=== PATIENT | female | born 1935 | race Caucasian/White ===

== ENCOUNTER 2016-08-30 08:07 | Day surgery (SDC) | payer MEDICARE, BC ==
[2016-08-30] MEDS ORDERED: Dextrose 5%-Lactated Ringers 1,000 ML IV SCH (09:00)
[2016-08-30] MEDS ORDERED: Propofol 200 MG/20 ML SDV ONE ×2 (09:18→09:19)
[2016-08-30] MEDS ORDERED: fentaNYL 100 MCG/2 ML SDV ONE (09:19)
[2016-08-30 12:57] VITALS: BP 96/50
--- NOTE | 2016-09-06 19:09 | OR ---
DATE OF PROCEDURE: 08/30/2016 PREOPERATIVE DIAGNOSIS: Recent onset of diarrhea. POSTOPERATIVE DIAGNOSES: 1. Recent onset of diarrhea. 2. Uncomplicated left colonic diverticulosis. OPERATIVE PROCEDURE: Flexible colonoscopy with: 1. Random colorectal biopsies to rule out microscopic colitis. 2. Collection of stool for culture and sensitivity. ANESTHESIA: IV sedation. INDICATION FOR PROCEDURE: A 80-year-old female with previously longstanding problems with aspiration of developing an ongoing diarrhea or frequent loose bowel movements and she had been reporting a bout of bleeding. The plan is to proceed with a flexible colonoscopy with biopsies and polypectomy as indicated. Potential risks including bleeding and perforation were discussed, and the patient wishes to proceed. DETAILS OF PROCEDURE: The patient was taken to the operating room and placed in a left lateral decubitus position. IV sedation was administered, after which the initial digital rectal exam was performed and was unremarkable. Colonoscope was then passed into the level of the rectum with retroflexion revealing uncomplicated hemorrhoidal columns. The scope was then eventually passed to the level of the cecum. The prep was fairly good with there only being a small liquid stool present. The stool was aspirated and sent for a full radial microbiologic workup. Apart from some uncomplicated left colonic diverticulosis, there were otherwise no mucosal abnormalities noted and there were no areas of colitis and no polyps or other signs of neoplasia. On the way back and from the cecum, multiple colorectal biopsies were obtained randomly to rule out microscopic colitis. No bleeding from the biopsy sites was seen, and the procedure was then concluded. The patient was taken to the recovery room in satisfactory condition. PLAN: At this point, we will add some FiberCon to the patient's regimen. The patient to be taking FiberCon tablet b.i.d. and she will be set up to see Olga Yao in [facility] in 7 to 10 days. Nicolas Reddy MD /[id number]
== END 2016-08-30 12:20 | disposition home or self-care (01) ==
LOC: JP.SDS 08:07
PROVIDERS: ATTEND Surgery
DX: K52.9 Noninfective gastroenteritis and colitis, unspecified (principal); K57.30 Diverticulosis of large intestine without perforation or abscess without bleeding; I10 Essential (primary) hypertension; E78.5 Hyperlipidemia, unspecified; K21.9 Gastro-esophageal reflux disease without esophagitis; E11.9 Type 2 diabetes mellitus without complications; Z88.1 Allergy status to other antibiotic agents; Z88.2 Allergy status to sulfonamides; Z88.8 Allergy status to other drugs, medicaments and biological substances
CPT/HCPCS: 45380; 87046; 87177; 87209; 87493; 87899; 88305; 89055; J2704; J3010; J7042

== ENCOUNTER 2020-08-22 11:03 | Emergency (ER) | payer MEDICARE ==
--- NOTE | 2020-08-22 11:49 | EDM.PDOC ---
ED HPI GENERAL MEDICAL PROBLEM - General Chief Complaint: Respiratory Problem Stated Complaint: DIFF. BREATHING/URINE ISSUES Time Seen by Provider: 08/22/20 11:30 Source of Information: Reports: Patient, Family History Limitations: Reports: No Limitations - History of Present Illness INITIAL COMMENTS - FREE TEXT/NARRATIVE: 84-year-old female with worsening shortness of breath especially with activity over the past week and a half. She received her second Covid vaccination 2 weeks ago. She was seen in the clinic a week ago, it was felt possibly to be a side effect from the second vaccination and told to recheck in 2 weeks but she feels she is getting worse so came in. Intermittent chills and diaphoresis, no chest pain. Some cough but nonproductive. Just cannot seem to catch her breath. She also is concerned that she is drinking plenty of water but not passing much urine like she normally does. She is not on a diuretic. Onset: Gradual Duration: Week(s): (2 weeks) Associated Symptoms: Reports: Diaphoresis, Malaise, Shortness of Breath, Weakness denies Pain Score (Numeric/FACES): 0 - Related Data Allergies Allergy/AdvReac Type Severity Reaction Status Date / Time amitriptyline Allergy Headache Verified 08/22/20 11:11 atorvastatin [From Lipitor] Allergy Muscle Verified 08/22/20 11:11 Aches doxepin Allergy Cannot Verified 08/22/20 11:11 Remember erythromycin base Allergy Cannot Verified 08/22/20 11:11 Remember morphine Allergy Swollen Verified 08/22/20 11:11 Tongue pravastatin Allergy Muscle Verified 08/22/20 11:11 Aches rosuvastatin [From Crestor] Allergy Muscle Verified 08/22/20 11:11 Aches simvastatin Allergy Muscle Verified 08/22/20 11:11 Aches Puscshk-Who-Ump Reductase Allergy Muscle Verified 08/22/20 11:11 Inhibitor Aches Sulfa (Sulfonamide Allergy Hives Verified 08/22/20 11:11 Antibiotics) Home Meds: Home Meds Aspirin 81 mg PO DAILY 08/28/16 [History] Calcium Carbonate/Vitamin D3 [Oyster Shell 500-Vit D3 200 Tb] 200 - 500 mg PO DAILY 08/28/16 [History] Citalopram [Citalopram HBr] 40 mg PO BEDTIME 08/28/16 [History] Colestipol [Colestipol HCl] 8 gm PO BID 08/28/16 [History] Lisinopril [Prinivil] 20 mg PO BEDTIME 08/28/16 [History] Metoprolol Succinate [Toprol XL] 25 mg PO DAILY 08/28/16 [History] allopurinoL [Zyloprim] 300 mg PO DAILY 08/28/16 [History] Latanoprost/Pf [Latanoprost 0.005% Eye Drop] 1 drop TOP DAILY 08/22/20 [History] Past Medical History HEENT History: Reports: Allergic Rhinitis, Cataract, Impaired Vision Cardiovascular History: Reports: Blood Clots/VTE/DVT, Heart Murmur, High Cholesterol, Hypertension, SOB on Exertion, Stents Respiratory History: Reports: Pneumonia, Recurrent, SOB Gastrointestinal History: Reports: Cholelithiasis, Chronic Constipation, Chronic Diarrhea, GERD Genitourinary History: Reports: Renal Calculus 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: Musculoskeletal History: Reports: Arthritis, Back Pain, Chronic, Gout, Neck Pain, Chronic, Osteoarthritis, Osteoporosis Neurological History: Reports: None Psychiatric History: Reports: Dementia Endocrine/Metabolic History: Reports: Obesity/BMI 30+ Hematologic History: Reports: Blood Transfusion(s) Dermatologic History: Reports: Other (See Below) Other Dermatologic History: rashes- lichen planis - Infectious Disease History Infectious Disease History: Reports: Chicken Pox, Herpes, Measles, Mumps, Michelle ngles - Past Surgical History HEENT Surgical History: Reports: Adenoidectomy, Tonsillectomy Cardiovascular Surgical History: Reports: Carotid Stents, Percutaneous Transluminal Angioplasty Respiratory Surgical History: Reports: None GI Surgical History: Reports: Appendectomy, Colonoscopy, EGD Female Surgical History: Reports: D&C, Hysterectomy, Oophorectomy Endocrine Surgical History: Reports: None Neurological Surgical History: Reports: None Musculoskeletal Surgical History: Reports: Hip Replacement, Knee Replacement, Shoulder Surgery Dermatological Surgical History: Reports: Other (See Below) Social & Family History - Family History Family Medical History: No Pertinent Family History - Tobacco Use Tobacco Use Status *Q: Never Tobacco User Second Hand Smoke Exposure: No - Caffeine Use Caffeine Use: Reports: Soda, Tea - Recreational Drug Use Recreational Drug Use: No ED ROS GENERAL - Review of Systems Review Of Systems: See Below Constitutional: Reports: Chills, Malaise HEENT: Reports: No Symptoms Respiratory: Reports: Shortness of Breath, Cough. Denies: Sputum Cardiovascular: Reports: Dyspnea on Exertion, Other (Chronic lower extremity edema). Denies: Chest Pain, Palpitations Endocrine: Reports: Fatigue GI/Abdominal: Reports: Abdominal Pain (Some intermittent mild upper abdominal discomfort, not currently) Skin: Reports: No Symptoms Neurological: Reports: Weakness. Denies: Dizziness, Headache Psychiatric: Reports: No Symptoms ED EXAM, GENERAL - Physical Exam Exam: See Below Exam Limited By: No Limitations General Appearance: Alert, No Apparent Distress (O2 saturations 96%, respiratory rate normal) Eye Exam: Bilateral Eye: Normal Inspection Head: Atraumatic Respiratory/Chest: No Respiratory Distress, Other (Good air movement to the bases, slight scattered expiratory wheezes are heard) Cardiovascular: Regular Rate, Rhythm. No: Extra Beats GI/Abdominal: Soft, Non-Tender Extremities: Other (Symmetric nonpitting edema of the lower extremities) Neurological: Alert, Oriented Psychiatric: Normal Affect, Normal Mood Skin Exam: Warm, Dry Course - Vital Signs Last Recorded V/S: Last Vital Signs Temp 97.9 F 08/22/20 14:28 Pulse 86 08/22/20 14:28 Resp 20 08/22/20 14:28 BP 125/92 H 08/22/20 14:28 Pulse Ox 95 08/22/20 14:28 - Orders/Labs/Meds Labs: Laboratory Tests 08/22/20 08/22/20 08/22/20 Range/Units 11:54 11:54 11:54 WBC 9.3 (4.5-11.0) K/uL RBC 4.86 (3.30-5.50) M/uL Hgb 14.5 (12.0-15.0) g/dL Hct 45.6 (36.0-48.0) % MCV 94 (80-98) fL MCH 30 (27-31) pg MCHC 32 (32-36) % Plt Count 271 (150-400) K/uL Neut % (Auto) 85 H (36-66) % Lymph % (Auto) 6 L (24-44) % [place] % (Auto) 9 H (2-6) % Eos % (Auto) 0 L (2-4) % Baso % (Auto) 0 (0-1) % D-Dimer, Quantitative 1712.44 H (0.0-500.0) ng/mL Sodium 143 (140-148) mmol/L Potassium 4.6 (3.6-5.2) mmol/L Chloride 106 (100-108) mmol/L Carbon Dioxide 23 (21-32) mmol/L Anion Gap 14.1 H (5.0-14.0) mmol/L BUN 26 H (7-18) mg/dL Creatinine 1.5 H (0.6-1.0) mg/dL Est Cr Clr Drug Dosing 20.41 mL/min Estimated GFR (MDRD) 33 L (>60) Glucose 149 H (74-106) mg/dL Calcium 9.2 (8.5-10.1) mg/dL Total Bilirubin 2.0 H (0.2-1.0) mg/dL AST 354 H (15-37) U/L ALT 324 H (12-78) U/L Alkaline Phosphatase 125 H (46-116) U/L Troponin I 0.035 (0.000-0.056) ng/mL Total Protein 6.2 L (6.4-8.2) g/dL Albumin 3.4 (3.4-5.0) g/dL Globulin 2.8 (2.3-3.5) g/dL Albumin/Globulin Ratio 1.2 (1.2-2.2) Influenza Type A RNA (NEGATIVE) RSV RNA (INAAT) (NEGATIVE) Influenza Type B RNA (NEGATIVE) SARS-CoV-2 RNA (ADALBERTO) (NEGATIVE) 08/22/20 Range/Units 11:54 WBC (4.5-11.0) K/uL RBC (3.30-5.50) M/uL Hgb (12.0-15.0) g/dL Hct (36.0-48.0) % MCV (80-98) fL MCH (27-31) pg MCHC (32-36) % Plt Count (150-400) K/uL Neut % (Auto) (36-66) % Lymph % (Auto) (24-44) % [place] % (Auto) (2-6) % Eos % (Auto) (2-4) % Baso % (Auto) (0-1) % D-Dimer, Quantitative (0.0-500.0) ng/mL Sodium (140-148) mmol/L Potassium (3.6-5.2) mmol/L Chloride (100-108) mmol/L Carbon Dioxide (21-32) mmol/L Anion Gap (5.0-14.0) mmol/L BUN (7-18) mg/dL Creatinine (0.6-1.0) mg/dL Est Cr Clr Drug Dosing mL/min Estimated GFR (MDRD) (>60) Glucose (74-106) mg/dL Calcium (8.5-10.1) mg/dL Total Bilirubin (0.2-1.0) mg/dL AST (15-37) U/L ALT (12-78) U/L Alkaline Phosphatase (46-116) U/L Troponin I (0.000-0.056) ng/mL Total Protein (6.4-8.2) g/dL Albumin (3.4-5.0) g/dL Globulin (2.3-3.5) g/dL Albumin/Globulin Ratio (1.2-2.2) Influenza Type A RNA Negative (NEGATIVE) RSV RNA (INAAT) Negative (NEGATIVE) Influenza Type B RNA Negative (NEGATIVE) SARS-CoV-2 RNA (ADALBERTO) Negative (NEGATIVE) - Re-Assessments/Exams Free Text/Narrative Re-Assessment/Exam: 08/22/20 11:49 CBC CMP D-dimer and troponin were obtained, along with a two-view chest x-ray and 4 Plex respiratory viral study. 08/22/20 12:52 CBC is normal but bilirubin is 2.0, LFTs are all elevated and her chest x-ray looks like there is a fullness or mass in the right perihilar area. A CT of the chest abdomen and pelvis without contrast will be obtained, her D-dimer is elevated at 1700 but her GFR is only 33 so she will need hydration and improvement in kidney function before IV contrast can be used. 08/22/20 14:14 CT scan shows some incidental findings but nothing acute. There is a layer of fluid along the arch of the aorta which needs to be further evaluated by an echocardiogram. The abdominal CT shows a cystic lesion in the left adnexa but it looks benign and chronic. She also has huge gallstones but no inflammatory changes. I am going to discharge her with an albuterol inhaler and a tapering prednisone course over a week. All 4 of her viral studies were negative. I would like her to be reevaluated by her primary provider later this week and compare her kidney function levels with previous findings. 08/22/20 14:57 Did discuss her case with Donavan Small, he will recheck her on . If not improving study to look for PE may have to be done, but her O2 saturations are normal and she is not tachycardic Departure - Departure Time of Disposition: 14:55 Disposition: Home, Self-Care 01 Clinical Impression: Viral bronchitis - Discharge Information Instructions: Shortness of Breath, Adult, [id number] Referrals: Donavan Small, [employer] [employer] [Primary Care Provider] - Forms: ED Department Discharge Care Plan Goals: Use inhaler every 3-4 hours if helpful. Take the prednisone as prescribed, each daily dose with your first meal of the day. Call the clinic tomorrow to make an appointment to see Donavan Small on , he is expecting you. Sepsis Event Note (ED) - Focused Exam Vital Signs: Vital Signs Temp Pulse Resp BP Pulse Ox 08/22/20 14:28 97.9 F 86 20 125/92 H 95 08/22/20 14:25 97.9 F 86 20 125/92 H 95 08/22/20 12:13 97.9 F 89 20 128/81 96
[2020-08-22 12:35] LABS: CORONAVIRUS COVID-19 NAA NEGATIVE (NEGATIVE)
--- NOTE | 2020-08-22 14:20 | CT ---
Chest Abdomen Pelvis wo Cont CLINICAL HISTORY: Upper abdominal pain and shortness of breath TECHNIQUE: Transverse scans were obtained from the thoracic inlet to the lung bases with IV contrast. Auto dose reduction and iterative reconstruction techniques were employed COMPARISONS: None FINDINGS: Lung window images show moderate breathing motion obscuring some detail. There is a 1.7 x 1.3 x 0.5 cm groundglass opacification in the left upper lobe laterally seen best on image #28. There are few 1 and 2 mm nodular foci in both upper lung goel No other pulmonary mass or infiltrate is identified Soft tissue window images show minimal right effusion versus some pleural thickening. The heart is moderately enlarged. There is a small circumferential fluid collection around the upper ascending aorta and mid arch. There is atheromatous plaque in the aorta without aneurysm.. CT ABDOMEN AND PEVIS WITH IV CONTRAST COMPARISON: 2017 TECHNIQUE: Axial tomographic images are obtained from the dome of the diaphragm to the iliac crest with IV contrast enhancement. Oral contrast was used. FINDINGS: The livershows no mass or biliary dilatation. The gallbladder contains multiple large gallstones. The spleen has a normal size and shape. The pancreas shows no mass or inflammatory change. The adrenal glands appear normal bilaterally. The kidneys show no stones or hydronephrosis. There is a 2.2 cm parapelvic cyst in the left kidney similar to prior study. Ureters have a normal course and contour. Bladder has normal contour. Patient has had a previous hysterectomy. There is a 2.9 x 3.5 cm fluid collection in the left adnexal region which is similar to 2017. There is now a small amount of fluid in the cul-de-sac. Streak artifact obscures the mid low pelvis significantly. There is moderate atheromatous plaque in the aorta without aneurysm. No suspicious. The small chest wall at configuration is nonacute. There is gas and feces throughout the colon. Appendix is been removed. There is no significant diverticular disease. IMPRESSION:1.7 x 1.3 x 0.5 cm groundglass opacity in the left upper lobe. Follow-up CT chest in 6-12 months recommended Small circumferential fluid collection around the ascending aorta. Correlation with echocardiogram should be considered. Minimal right pleural fluid collection versus pleural thickening Cholelithiasis with multiple large stones. There is no biliary dilatation 2. 3.5 cm left adnexal fluid collection similar to prior study. There has been previous hysterectomy. There is now small amount of fluid in the cul-de-sac
[2020-08-22 14:28] VITALS: BP 125/92; PULSE 86
--- NOTE | 2020-08-22 14:46 | CR ---
CHEST: 2 view CLINICAL HISTORY:SOB, abdominal pain COMPARISON:None FINDINGS: The heart is enlarged. Pulmonary vascularity is normal. No infiltrate, effusion or pneumothorax is seen. There is some mild fullness of the right hilum. This may be rotational. Impression: Mild cardiomegaly.
== END 2020-08-22 14:55 | disposition home or self-care (01) ==
LOC: JP.ED 11:03
DX: J20.8 Acute bronchitis due to other specified organisms (principal); I10 Essential (primary) hypertension; M10.9 Gout, unspecified; F03.90 Unspecified dementia, unspecified severity, without behavioral disturbance, psychotic disturbance, mood disturbance, and anxiety; E66.9 Obesity, unspecified; Z68.39 Body mass index [BMI] 39.0-39.9, adult; Z88.8 Allergy status to other drugs, medicaments and biological substances; Z88.1 Allergy status to other antibiotic agents; Z88.5 Allergy status to narcotic agent; Z88.2 Allergy status to sulfonamides; Z79.82 Long term (current) use of aspirin; Z79.899 Other long term (current) drug therapy; Z20.822 Contact with and (suspected) exposure to COVID-19
CPT/HCPCS: 0241U; 36415; 71046; 71250; 74176; 80053; 84484; 85025; 85379; 99285

== ENCOUNTER 2020-08-27 15:51 | Inpatient (IN) | payer MEDICARE ==
[2020-08-27] MEDS ORDERED: Sodium Chloride 0.9% 10 ML Syringe FLUSH PRN ×2 (17:07→19:55)
--- NOTE | 2020-08-27 17:14 | EDM.PDOC ---
ED HPI GENERAL MEDICAL PROBLEM - General Chief Complaint: Respiratory Problem Stated Complaint: CHF SYMPTOMS, SOB Time Seen by Provider: 08/27/20 16:50 Source of Information: Reports: Patient, Family, Old Records, RN History Limitations: Reports: No Limitations - History of Present Illness INITIAL COMMENTS - FREE TEXT/NARRATIVE: 84 yo female presents with SOB. Has a bit of a cough. No fever. Was seen here this last Saturday and sx's were felt possibly to be due to her recent Covid vaccine. She had an elevated d-dimer at that time, but no PE study could be done due to her poor renal fxn. Her discharge dx was viral bronchitis. She was asked to f/u in the clinic which she did this past . At that appt she was started on low dose(20 mg) of furosemide daily and has not improved on that. Here with daughter who feels also she is less alert now than 2 d ago. On her last ER visit her LFT's were also quite high. Onset: Gradual Duration: Week(s): (~1), Getting Worse Location: Reports: Head (somnolent), Chest (SOB) Quality: Reports: Dull (epigastric pain) Severity: Mild Improves with: Reports: None Worsens with: Reports: Other (pressing on that area) Context: Reports: Other (See HPI) Associated Symptoms: Reports: Cough (not frequent), Shortness of Breath. 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 (see below) (20 mg furosemide daily) - Related Data Allergies Allergy/AdvReac Type Severity Reaction Status Date / Time amitriptyline Allergy Headache Verified 08/27/20 16:10 atorvastatin [From Lipitor] Allergy Muscle Verified 08/27/20 16:10 Aches doxepin Allergy Cannot Verified 08/27/20 16:10 Remember erythromycin base Allergy Cannot Verified 08/27/20 16:10 Remember morphine Allergy Swollen Verified 08/27/20 16:10 Tongue pravastatin Allergy Muscle Verified 08/27/20 16:10 Aches rosuvastatin [From Crestor] Allergy Muscle Verified 08/27/20 16:10 Aches simvastatin Allergy Muscle Verified 08/27/20 16:10 Aches [id number]-Gho Reductase Allergy Muscle Verified 08/27/20 16:10 Inhibitor Aches Sulfa (Sulfonamide Allergy Hives Verified 08/27/20 16:10 Antibiotics) Home Meds: Home Meds Aspirin 81 mg PO DAILY 08/28/16 [History] Calcium Carbonate/Vitamin D3 [Oyster Shell 500-Vit D3 200 Tb] 200 - 500 mg PO DAILY 08/28/16 [History] Citalopram [Citalopram HBr] 40 mg PO BEDTIME 08/28/16 [History] Lisinopril [Prinivil] 20 mg PO BEDTIME 08/28/16 [History] Metoprolol Succinate [Toprol XL] 25 mg PO DAILY 08/28/16 [History] allopurinoL [Zyloprim] 300 mg PO DAILY 08/28/16 [History] Latanoprost/Pf [Latanoprost 0.005% Eye Drop] 1 drop TOP DAILY 08/22/20 [History] Furosemide [Lasix] 20 mg PO DAILY 08/27/20 [History] predniSONE [Prednisone] 30 mg PO ASDIRECTED 08/27/20 [History] Past Medical History HEENT History: Reports: Allergic Rhinitis, Cataract, Impaired Vision Cardiovascular History: Reports: Blood Clots/VTE/DVT, Heart Murmur, High Chol esterol, Hypertension, SOB on Exertion, Stents Respiratory History: Reports: Pneumonia, Recurrent, SOB Gastrointestinal History: Reports: Cholelithiasis, Chronic Constipation, Chronic Diarrhea, GERD Genitourinary History: Reports: Renal Calculus 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 DENTURE History: Reports: Musculoskeletal History: Reports: Arthritis, Back Pain, Chronic, Gout, Neck Pain, Chronic, Osteoarthritis, Osteoporosis Neurological History: Reports: None Psychiatric History: Reports: Dementia Endocrine/Metabolic History: Reports: Obesity/BMI 30+ Hematologic History: Reports: Blood Transfusion(s) Dermatologic History: Reports: Other (See Below) Other Dermatologic History: rashes- lichen planis - Infectious Disease History Infectious Disease History: Reports: Chicken Pox, Herpes, Measles, Mumps, Shingles - Past Surgical History Head Surgeries/Procedures: Reports: None HEENT Surgical History: Reports: Adenoidectomy, Tonsillectomy Cardiovascular Surgical History: Reports: Carotid Stents, Percutaneous Trans luminal Angioplasty Respiratory Surgical History: Reports: None GI Surgical History: Reports: Appendectomy, Colonoscopy, EGD Female Surgical History: Reports: D&C, Hysterectomy, Oophorectomy Endocrine Surgical History: Reports: None Neurological Surgical History: Reports: None Musculoskeletal Surgical History: Reports: Hip Replacement, Knee Replacement, Shoulder Surgery Dermatological Surgical History: Reports: Other (See Below) Social & Family History - Family History Family Medical History: No Pertinent Family History - Tobacco Use Tobacco Use Status *Q: Never Tobacco User Second Hand Smoke Exposure: No - Caffeine Use Caffeine Use: Reports: Soda - Recreational Drug Use Recreational Drug Use: No ED ROS GENERAL - Review of Systems Review Of Systems: See Below Constitutional: Reports: No Symptoms HEENT: Reports: No Symptoms Respiratory: Reports: Shortness of Breath Cardiovascular: Reports: No Symptoms Endocrine: Reports: No Symptoms GI/Abdominal: Reports: Abdominal Pain (epigastric) : Reports: No Symptoms Musculoskeletal: Reports: No Symptoms Skin: Reports: No Symptoms Neurological: Reports: Other (increased sleepiness) ED EXAM, GENERAL - Physical Exam Exam: See Below Exam Limited By: No Limitations General Appearance: Alert, WD/WN, No Apparent Distress, Lethargic Eye Exam: Bilateral Eye: Normal Inspection Ears: Normal External Exam, Normal Canal, Hearing Grossly Normal Ear Exam: Bilateral Ear: Auricle Normal, Canal Normal Nose: Normal Inspection, No Blood Throat/Mouth: Normal Inspection, Normal Lips, Normal Oropharynx, Normal Voice, No Airway Compromise Head: Atraumatic, Normocephalic Neck: Normal Inspection Respiratory/Chest: No Respiratory Distress, Lungs Clear, Normal Breath Sounds, No Accessory Muscle Use Cardiovascular: Regular Rate, Rhythm, No Edema GI/Abdominal: Normal Bowel Sounds, Soft, No Distention, Tender (mild epigastric). No: Non-Tender, Distended Back Exam: Normal Inspection. No: CVA Tenderness (R), CVA Tenderness (L) Extremities: Normal Inspection, Normal Range of Motion, Non-Tender, No Pedal Edema. No: Pedal Edema Neurological: Oriented, CN II-XII Intact, Other (eyes mostly closed, seems somnolent). No: Disoriented Psychiatric: Normal Mood, Flat Affect Skin Exam: Warm, Dry, Intact, Normal Color, No Rash Course - Vital Signs Text/Narrative:: Dr. Berry called @ 1750h Last Recorded V/S: Last Vital Signs Temp 36.1 C 08/27/20 16:13 Pulse 88 08/27/20 17:45 Resp 28 H 08/27/20 17:45 BP 156/88 H 08/27/20 17:45 Pulse Ox 96 08/27/20 17:45 - Orders/Labs/Meds Orders: Active Orders 24 hr Category Date Time Status Chest 1V Frontal [CR] Stat Exams 08/27/20 17:06 Taken ETHANOL BLOOD MEDICAL [CHEM] Stat Lab 08/27/20 17:52 Ordered Sodium Chloride 0.9% [Normal Saline] 1,000 ml Med 08/27/20 17:47 Active IV .BOLUS Sodium Chloride 0.9% [Saline Flush] Med 08/27/20 17:07 Active 10 ml FLUSH ASDIRECTED PRN Saline Lock Insert [OM.PC] Routine Oth 08/27/20 17:07 Ordered Medication Orders Sodium Chloride (Normal Saline) 1,000 mls @ 1,000 mls/hr IV .BOLUS ONE Stop: 08/27/20 18:46 Last Admin: 08/27/20 17:52 Dose: 1,000 mls/hr Documented by: EVERTON Sodium Chloride (Sodium Chloride 0.9% 10 Ml Syringe) 10 ml FLUSH ASDIRECTED PRN PRN Reason: Keep Vein Open Last Admin: 08/27/20 17:08 Dose: 10 ml Documented by: EVERTON Labs: Laboratory Tests 08/27/20 08/27/20 08/27/20 Range/Units 16:55 16:55 16:55 WBC 13.3 H (4.5-11.0) K/uL RBC 5.75 H (3.30-5.50) M/uL Hgb 17.1 H D (12.0-15.0) g/dL Hct 53.3 H (36.0-48.0) % MCV 93 (80-98) fL MCH 30 (27-31) pg MCHC 32 (32-36) % Plt Count 126 L (150-400) K/uL D-Dimer, Quantitative 8418.25 H (0.0-500.0) ng/mL Sodium 136 L (140-148) mmol/L Potassium 5.0 (3.6-5.2) mmol/L Chloride 98 L (100-108) mmol/L Carbon Dioxide 20 L (21-32) mmol/L Anion Gap 23.0 H (5.0-14.0) mmol/L BUN 55 H D (7-18) mg/dL Creatinine 1.8 H (0.6-1.0) mg/dL Est Cr Clr Drug Dosing 17.01 mL/min Estimated GFR (MDRD) 27 L (>60) Glucose 192 H (74-106) mg/dL Calcium 9.0 (8.5-10.1) mg/dL Ammonia (11-32) mmol/L Troponin I 0.074 H* (0.000-0.056) ng/mL NT-Pro-B Natriuret Pep 16958 H (5-450) pg/mL Urine Color (YELLOW) Urine Appearance (CLEAR) Urine pH (5.0-8.0) Ur Specific [place] (1.008-1.030) Urine Protein (NEGATIVE) mg/dL Urine Glucose (UA) (NEGATIVE) mg/dL Urine Ketones (NEGATIVE) mg/dL Urine Occult Blood (NEGATIVE) Urine Nitrite (NEGATIVE) Urine Bilirubin (NEGATIVE) Urine Urobilinogen (0.2-1.0) EU/dL Ur Leukocyte Esterase (NEGATIVE) Urine RBC (0-5) Urine WBC (0-5) Ur Epithelial Cells Amorphous Sediment Urine Bacteria Urine Mucus Urine Other 08/27/20 08/27/20 Range/Units 16:55 17:27 WBC (4.5-11.0) K/uL RBC (3.30-5.50) M/uL Hgb (12.0-15.0) g/dL Hct (36.0-48.0) % MCV (80-98) fL MCH (27-31) pg MCHC (32-36) % Plt Count (150-400) K/uL D-Dimer, Quantitative (0.0-500.0) ng/mL Sodium (140-148) mmol/L Potassium (3.6-5.2) mmol/L Chloride (100-108) mmol/L Carbon Dioxide (21-32) mmol/L Anion Gap (5.0-14.0) mmol/L BUN (7-18) mg/dL Creatinine (0.6-1.0) mg/dL Est Cr Clr Drug Dosing mL/min Estimated GFR (MDRD) (>60) Glucose (74-106) mg/dL Calcium (8.5-10.1) mg/dL Ammonia < 10 L (11-32) mmol/L Troponin I (0.000-0.056) ng/mL NT-Pro-B Natriuret Pep (5-450) pg/mL Urine Color Yellow (YELLOW) Urine Appearance Slightly cloudy A (CLEAR) Urine pH 5.5 (5.0-8.0) Ur Specific [place] >= 1.030 (1.008-1.030) Urine Protein >=300 H (NEGATIVE) mg/dL Urine Glucose (UA) Negative (NEGATIVE) mg/dL Urine Ketones Negative (NEGATIVE) mg/dL Urine Occult Blood Moderate H (NEGATIVE) Urine Nitrite Negative (NEGATIVE) Urine Bilirubin Small H (NEGATIVE) Urine Urobilinogen 1.0 (0.2-1.0) EU/dL Ur Leukocyte Esterase Negative (NEGATIVE) Urine RBC 5-10 H (0-5) Urine WBC 0-5 (0-5) Ur Epithelial Cells Not seen Amorphous Sediment Moderate Urine Bacteria Occasional Urine Mucus Rare Urine Other Meds: Medications Generic Name Dose Route Start Last Admin Trade Name Freq PRN Reason Stop Dose Admin Sodium Chloride 1,000 mls @ 1,000 mls/hr 08/27/20 17:47 08/27/20 17:52 Normal Saline IV 08/27/20 18:46 1,000 mls/hr .BOLUS ONE Administration Sodium Chloride 10 ml 08/27/20 17:07 08/27/20 17:08 Sodium Chloride 0.9% 10 Ml Syringe FLUSH 10 ml ASDIRECTED PRN Administration Keep Vein Open - Radiology Interpretation Free Text/Narrative:: CXR-cardiomegaly, no other pathology Departure - Departure Time of Disposition: 18:00 Disposition: Admitted As Inpatient 67 Condition: Poor Clinical Impression: Dehydration, Elevated d-dimer, Elevated brain natriuretic peptide (BNP) level, Elevated troponin CRF (chronic renal failure) Qualifiers: Chronic kidney disease stage: stage 4 (severe) Qualified Code(s): N18.4 - Chronic kidney disease, stage 4 (severe) - Discharge Information Referrals: Donavan Small NP [Primary Care Provider] - Forms: ED Department Discharge Sepsis Event Note (ED) - Evaluation Sepsis Screening Result: No Definite Risk - Focused Exam Vital Signs: Vital Signs Temp Pulse Resp BP Pulse Ox 08/27/20 17:45 88 28 H 156/88 H 96 08/27/20 16:54 90 28 H 155/93 H 98 08/27/20 16:41 94 77/53 L 97 08/27/20 16:13 36.1 C 92 22 H 118/88 96 08/27/20 16:10 36.1 C 92 22 H 118/88 96 - My Orders Last 24 Hours: My Active Orders 08/27/20 17:06 Chest 1V Frontal [CR] Stat 08/27/20 17:07 Sodium Chloride 0.9% [Saline Flush] 10 ml FLUSH ASDIRECTED PRN Saline Lock Insert [OM.PC] Routine 08/27/20 17:47 Sodium Chloride 0.9% [Normal Saline] 1,000 ml IV .BOLUS 08/27/20 17:52 ETHANOL BLOOD MEDICAL [CHEM] Stat - Assessment/Plan Last 24 Hours: My Active Orders 08/27/20 17:06 Chest 1V Frontal [CR] Stat 08/27/20 17:07 Sodium Chloride 0.9% [Saline Flush] 10 ml FLUSH ASDIRECTED PRN Saline Lock Insert [OM.PC] Routine 08/27/20 17:47 Sodium Chloride 0.9% [Normal Saline] 1,000 ml IV .BOLUS 08/27/20 17:52 ETHANOL BLOOD MEDICAL [CHEM] Stat
[2020-08-27] MEDS ORDERED: Sodium Chloride 0.9% 1,000 ML IV ONE (17:47)
--- NOTE | 2020-08-27 18:55 | PCM.HP.2 ---
H&P History of Present Illness - General Date of Service: 08/27/20 Admit Problem/Dx: Admission Diagnosis/Problem Admission Diagnosis/Problem Dyspnea Source of Information: Patient, Family, Old Records, Provider, RN Notes Reviewed History Limitations: Reports: No Limitations - History of Present Illness Initial Comments - Free Text/Narative: Ms. De La Paz is an 84-year-old woman who was admitted through the emergency department with progressive weakness, abdominal pain, and shortness of breath. She has not felt well over the past week and during that period of time has bec ome progressively more weak. She was seen and evaluated 5 days ago in the emergency department. At that time she was noted to have some renal insufficiency, elevated liver enzymes with a bilirubin of 2 and AST ALT in the range of 2-300. CT scan of the abdomen pelvis and chest showed no obvious ab normalities other than large gallstones noted in the gallbladder. She was seen a few days ago for follow-up in the clinic and was started on furosemide for possible congestive heart failure. She does report that her breathing is somewhat better but she still has become progressively more weak. She has been able to take in liquids but no solid foods for several days. Abdominal pain occurs across the mid abdomen and does get significantly worse with eating. Because of progressive symptoms she presented to the emergency department again today for further evaluation. White blood cell count is mildly to moderately elevated. Oxygen saturation has been adequate on room air but respiratory rate has been increased into the mid and upper 20s. Liver enzymes are further elevated with a bilirubin of 3.7, ALT is 2300. D-dimer has increased from 18 100-8000. She has a known history of previous coronary artery disease, troponin is modestly elevated at 0.074. She currently denies any symptoms of chest pain or pressure. Creatinine is elevated from previous level as is her BUN. She does have a known history of deep vein thrombosis but denies history of pulmonary emboli. She is not a candidate for CT scan of the chest with contrast because of her diminished renal function. - Related Data Allergies/Adverse Reactions: Allergies Allergy/AdvReac Type Severity Reaction Status Date / Time amitriptyline Allergy Headache Verified 08/27/20 16:10 atorvastatin [From Lipitor] Allergy Muscle Verified 08/27/20 16:10 Aches doxepin Allergy Cannot Verified 08/27/20 16:10 Remember erythromycin base Allergy Cannot Verified 08/27/20 16:10 Remember morphine Allergy Swollen Verified 08/27/20 16:10 Tongue pravastatin Allergy Muscle Verified 08/27/20 16:10 Aches rosuvastatin [From Crestor] Allergy Muscle Verified 08/27/20 16:10 Aches simvastatin Allergy Muscle Verified 08/27/20 16:10 Aches [id number] Reductase Allergy Muscle Verified 08/27/20 16:10 Inhibitor Aches Sulfa (Sulfonamide Allergy Hives Verified 08/27/20 16:10 Antibiotics) Home Medications: Home Meds Aspirin 81 mg PO DAILY 08/28/16 [History] Calcium Carbonate/Vitamin D3 [Oyster Shell 500-Vit D3 200 Tb] 200 - 500 mg PO DAILY 08/28/16 [History] Citalopram [Citalopram HBr] 40 mg PO BEDTIME 08/28/16 [History] Lisinopril [Prinivil] 20 mg PO BEDTIME 08/28/16 [History] Metoprolol Succinate [Toprol XL] 25 mg PO DAILY 08/28/16 [History] allopurinoL [Zyloprim] 300 mg PO DAILY 08/28/16 [History] Latanoprost/Pf [Latanoprost 0.005% Eye Drop] 1 drop TOP DAILY 08/22/20 [History] Furosemide [Lasix] 20 mg PO DAILY 08/27/20 [History] predniSONE [Prednisone] 30 mg PO ASDIRECTED 08/27/20 [History] Past Medical History HEENT History: Reports: Allergic Rhinitis, Cataract, Impaired Vision Cardiovascular History: Reports: Blood Clots/VTE/DVT, Heart Murmur, High Cholesterol, Hypertension, SOB on Exertion, Stents Respiratory History: Reports: Pneumonia, Recurrent, SOB Gastrointestinal History: Reports: Cholelithiasis, Chronic Constipation, Chronic Diarrhea, GERD Genitourinary History: Reports: Renal Calculus 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: Musculoskeletal History: Reports: Arthritis, Back Pain, Chronic, Gout, Neck Pain, Chronic, Osteoarthritis, Osteoporosis Neurological History: Reports: None Psychiatric History: Reports: Dementia Endocrine/Metabolic History: Reports: Obesity/BMI 30+ Hematologic History: Reports: Blood Transfusion(s) Dermatologic History: Reports: Other (See Below) Other Dermatologic History: rashes- lichen planis - Infectious Disease History Infectious Disease History: Reports: Chicken Pox, Herpes, Measles, Mumps, Shingles - Past Surgical History Head Surgeries/Procedures: Reports: None HEENT Surgical History: Reports: Adenoidectomy, Tonsillectomy Cardiovascular Surgical History: Reports: Carotid Stents, Percutaneous Transluminal Angioplasty Respiratory Surgical History: Reports: None GI Surgical History: Reports: Appendectomy, Colonoscopy, EGD Female Surgical History: Reports: D&C, Hysterectomy, Oophorectomy Endocrine Surgical History: Reports: None Neurological Surgical History: Reports: None Musculoskeletal Surgical History: Reports: Hip Replacement, Knee Replacement, Shoulder Surgery Dermatological Surgical History: Reports: Other (See Below) Social & Family History - Family History Family Medical History: No Pertinent Family History - Tobacco Use Tobacco Use Status *Q: Never Tobacco User Second Hand Smoke Exposure: No - Caffeine Use Caffeine Use: Reports: Soda - Recreational Drug Use Recreational Drug Use: No H&P Review of Systems - Review of Systems: Review Of Systems: See Below General: Reports: Malaise, Weakness, Fatigue, Decreased Appetite. Denies: Fever, Chills HEENT: Reports: No Symptoms Pulmonary: Reports: Shortness of Breath. Denies: Wheezing, Pleuritic Chest Pain, Cough, Sputum, Hemoptysis Cardiovascular: Reports: Dyspnea on Exertion. Denies: Chest Pain, Palpitations, Orthopnea, PND, Edema, Lightheadedness Gastrointestinal: Reports: Abdominal Pain, Decreased Appetite, Nausea. Denies: Constipation, Diarrhea, Difficulty Swallowing, Distension, Hematemesis, Hematochezia, Melena, Vomiting Genitourinary: Reports: No Symptoms Musculoskeletal: Reports: No Symptoms Skin: Reports: No Symptoms Psychiatric: Reports: No Symptoms Neurological: Reports: No Symptoms Hematologic/Lymphatic: Reports: No Symptoms Immunologic: Reports: No Symptoms Exam - Exam Exam: See Below - Vital Signs Vital Signs: Last Vital Signs Temp 97.0 F 08/27/20 16:13 Pulse 82 08/27/20 18:42 Resp 20 08/27/20 18:42 BP 161/98 H 08/27/20 18:42 Pulse Ox 99 08/27/20 18:42 Weight: 203 lb - Exam Quality Assessment: DVT Prophylaxis General: Alert, Oriented, Cooperative, Moderate Distress HEENT: Conjunctiva Clear, Hearing Intact, Normal Nasal Septum, Posterior Pharynx Clear, Pupils Equal. No: Mucosa Moist & [place] Neck: Supple, Trachea Midline, +2 Carotid Pulse wo Bruit Lungs: Clear to Auscultation, Normal Respiratory Effort, Decreased Breath Sounds. No: Rales, Rhonchi, Wheezing Cardiovascular: Regular Rate, Regular Rhythm, Normal S1, Normal S2. No: Systolic Murmur, Diastolic Murmur GI/Abdominal Exam: Soft, No Organomegaly, Tender. No: Distended, Guarding, Rigid, Rebound Back Exam: Normal Inspection, Full Range of Motion Extremities: Non-Tender, No Pedal Edema Skin: Warm, Dry, Intact Neurological: Cranial Nerves Intact, Strength Equal Bilateral, Normal Speech, Normal Tone, Sensation Intact. No: Focal Deficit Neuro Extensive - Mental Status: Alert, Oriented x3, Normal Mood/Affect, Normal Cognition, Memory Intact - Patient Data Lab Results Last 24 hrs: Laboratory Results - last 24 hr 08/27/20 08/27/20 08/27/20 Range/Units 16:55 16:55 16:55 WBC 13.3 H (4.5-11.0) K/uL RBC 5.75 H (3.30-5.50) M/uL Hgb 17.1 H D (12.0-15.0) g/dL Hct 53.3 H (36.0-48.0) % MCV 93 (80-98) fL MCH 30 (27-31) pg MCHC 32 (32-36) % Plt Count 126 L (150-400) K/uL D-Dimer, Quantitative 8418.25 H (0.0-500.0) ng/mL Sodium 136 L (140-148) mmol/L Potassium 5.0 (3.6-5.2) mmol/L Chloride 98 L (100-108) mmol/L Carbon Dioxide 20 L (21-32) mmol/L Anion Gap 23.0 H (5.0-14.0) mmol/L BUN 55 H D (7-18) mg/dL Creatinine 1.8 H (0.6-1.0) mg/dL Est Cr Clr Drug Dosing 17.01 mL/min Estimated GFR (MDRD) 27 L (>60) Glucose 192 H (74-106) mg/dL Calcium 9.0 (8.5-10.1) mg/dL Ammonia (11-32) mmol/L Troponin I 0.074 H* (0.000-0.056) ng/mL NT-Pro-B Natriuret Pep 06998 H (5-450) pg/mL Urine Color (YELLOW) Urine Appearance (CLEAR) Urine pH (5.0-8.0) Ur Specific [place] (1.008-1.030) Urine Protein (NEGATIVE) mg/dL Urine Glucose (UA) (NEGATIVE) mg/dL Urine Ketones (NEGATIVE) mg/dL Urine Occult Blood (NEGATIVE) Urine Nitrite (NEGATIVE) Urine Bilirubin (NEGATIVE) Urine Urobilinogen (0.2-1.0) EU/dL Ur Leukocyte Esterase (NEGATIVE) Urine RBC (0-5) Urine WBC (0-5) Ur Epithelial Cells Amorphous Sediment Urine Bacteria Urine Mucus Urine Other Ethyl Alcohol mg/dL 08/27/20 08/27/20 08/27/20 Range/Units 16:55 16:55 17:27 WBC (4.5-11.0) K/uL RBC (3.30-5.50) M/uL Hgb (12.0-15.0) g/dL Hct (36.0-48.0) % MCV (80-98) fL MCH (27-31) pg MCHC (32-36) % Plt Count (150-400) K/uL D-Dimer, Quantitative (0.0-500.0) ng/mL Sodium (140-148) mmol/L Potassium (3.6-5.2) mmol/L Chloride (100-108) mmol/L Carbon Dioxide (21-32) mmol/L Anion Gap (5.0-14.0) mmol/L BUN (7-18) mg/dL Creatinine (0.6-1.0) mg/dL Est Cr Clr Drug Dosing mL/min Estimated GFR (MDRD) (>60) Glucose (74-106) mg/dL Calcium (8.5-10.1) mg/dL Ammonia < 10 L (11-32) mmol/L Troponin I (0.000-0.056) ng/mL NT-Pro-B Natriuret Pep (5-450) pg/mL Urine Color Yellow (YELLOW) Urine Appearance Slightly cloudy A (CLEAR) Urine pH 5.5 (5.0-8.0) Ur Specific [place] >= 1.030 (1.008-1.030) Urine Protein >=300 H (NEGATIVE) mg/dL Urine Glucose (UA) Negative (NEGATIVE) mg/dL Urine Ketones Negative (NEGATIVE) mg/dL Urine Occult Blood Moderate H (NEGATIVE) Urine Nitrite Negative (NEGATIVE) Urine Bilirubin Small H (NEGATIVE) Urine Urobilinogen 1.0 (0.2-1.0) EU/dL Ur Leukocyte Esterase Negative (NEGATIVE) Urine RBC 5-10 H (0-5) Urine WBC 0-5 (0-5) Ur Epithelial Cells Not seen Amorphous Sediment Moderate Urine Bacteria Occasional Urine Mucus Rare Urine Other Ethyl Alcohol < 3 mg/dL Result Diagrams: 08/27/20 16:55 08/27/20 16:55 Sepsis Event Note - Evaluation Sepsis Screening Result: No Definite Risk - Focused Exam Vital Signs: Vital Signs Temp Pulse Resp BP Pulse Ox 08/27/20 18:42 82 20 161/98 H 99 08/27/20 17:45 88 28 H 156/88 H 96 08/27/20 16:54 90 28 H 155/93 H 98 08/27/20 16:41 94 77/53 L 97 08/27/20 16:13 97.0 F 92 22 H 118/88 96 08/27/20 16:10 97.0 F 92 22 H 118/88 96 *Q Meaningful Use (ADM) - VTE *Q VTE Pharmacological Contraindications *Q: High INR Value - VTE Risk Assess *Q Each Risk Factor Represents 1 Point: Obesity ( BMI > 25 kg/m2) Total Score 1 Point Risk Factors: 1 Each Risk Factor Represents 2 Points: None Total Score 2 Point Risk Factors: 0 Each Risk Factor Represents 3 Points: Age 75 Years or Greater, History of DVT/PE Total Score 3 Point Risk Factors: 6 Each Risk Factor Represents 5 Points: None Total Score 5 Point Risk Factors: 0 Venous Thromboembolism Risk Factor Score *Q: 7 Problem List Initiated/Reviewed/Updated: Yes Orders Last 24hrs: Active Orders 24 hr Category Date Time Status Patient Status Manage Transfer [TRANSFER] Routine ADT 08/27/20 18:45 Ordered Chest 1V Frontal [CR] Stat Exams 08/27/20 17:06 Taken HEPATIC FUNCTION PANEL,HFP [CHEM] Stat Lab 08/27/20 18:44 Ordered Sodium Chloride 0.9% [Saline Flush] Med 08/27/20 17:07 Active 10 ml FLUSH ASDIRECTED PRN Saline Lock Insert [OM.PC] Routine Oth 08/27/20 17:07 Ordered Resuscitation Status Routine Resus Stat 08/27/20 18:49 Ordered Medication Orders Sodium Chloride (Sodium Chloride 0.9% 10 Ml Syringe) 10 ml FLUSH ASDIRECTED PRN PRN Reason: Keep Vein Open Last Admin: 08/27/20 17:08 Dose: 10 ml Documented by: [place] Assessment/Plan Comment:: ASSESSMENT AND PLAN CHOLECYSTITIS-likely cause of current liver enzyme elevation including bilirubin, question possible underlying biliary obstruction. She has had symptoms of abdominal pain and nausea with eating over the past several days. Known history of cholelithiasis with large gallstones documented on recent CT scan. -Pain and nausea medication as needed -Empiric antibiotic therapy with Unasyn 1.5 g IV every 6 hours -IV fluids for hydration -Abdominal ultrasound to further evaluate for gallbladder disease, may need to consider further evaluation including MRCP and HIDA scan -Reassess liver tests in a.m. DYSPNEA-she does have a known history of coronary artery disease but denies history of congestive heart failure or COPD. She has adequate oxygenation on room air, but respiratory rate is elevated. Known history of previous deep vein thrombosis x2, she denies any history of pulmonary emboli. D-dimer has increased significantly over the last week. She is not a candidate for CT scan of the chest with IV contrast because of her renal insufficiency. -Therapeutic anticoagulation pending further evaluation; Lovenox 90 mg subcu every 12 hours -Venous Doppler studies in a.m., both lower extremities -VQ scan Saturday when available -Supplemental oxygen as needed DEHYDRATION/WEAKNESS-secondary to current illness and recent diuretic therapy -Hold furosemide -IV fluids for hydration, reassess in a.m. CHRONIC KIDNEY DISEASE STAGE IIIb-renal function has declined over the past week likely secondary to intravascular volume depletion and dehydration -IV fluids as above -Closely monitor urine output and renal function ELEVATED TROPONIN-she does have a known history of coronary artery disease, denies symptoms of chest pain. Elevated troponin is likely secondary to current illness and underlying renal insufficiency. -Serial troponin levels MAINTENANCE ISSUES -DVT prophylaxis; current therapy with Lovenox should provide adequate DVT prophylaxis -GI prophylaxis; not indicated -Dozier catheter; not indicated -Nutrition; regular diet -Nicotine dependence; not required CODE STATUS-DNR/DNI ADMISSION STATUS-patient will be admitted to inpatient status, expect at least a 2 night hospital stay for evaluation and management of problems as outlined above. At the time of this admission I do not reasonably expected evaluation and management of this problem will require more than a 96 hour hospital stay. DISPOSITION-anticipate discharge to home after the hospital stay. PRIMARY CARE PROVIDER-Donavan Small - Mortality Measure Prognosis:: Poor
[2020-08-27] MEDS ORDERED: Ampicillin/Sulbactam Na 1.5 GM in Sodium Chloride 0.9% 50 ML IV SCH (19:55)
[2020-08-27] MEDS ORDERED: predniSONE 20 MG Tab PO SCH (19:55)
[2020-08-27] MEDS ORDERED: Ondansetron 4 MG/2 ML SDV IV PRN (19:55)
[2020-08-27] MEDS ORDERED: Enoxaparin 80 MG/0.8 ML Syringe SUBCUT SCH (19:55)
[2020-08-27] MEDS ORDERED: Albuterol 0.083% 2.5 MG/3 ML Neb Soln NEB PRN (19:55)
[2020-08-27] MEDS ORDERED: Polyethylene Glycol 3350 Powder 17 GM Packet PO PRN (19:55)
[2020-08-27] MEDS: Ampicillin/Sulbactam Na 1.5 GM in Sodium Chloride 0.9% 50 ML IV SCH (20:30)
[2020-08-27] MEDS: Sodium Chloride 0.9% 1,000 ML IV SCH (20:31)
[2020-08-27] MEDS ORDERED: Lisinopril 10 MG Tab ONE (20:35)
[2020-08-27] MEDS: Enoxaparin 100 MG/1 ML Syringe SUBCUT SCH (20:38)
[2020-08-27] MEDS: Citalopram 20 MG Tab PO SCH (20:39)
[2020-08-27] MEDS: Lisinopril 20 MG Tab PO SCH (20:39)
[2020-08-28] MEDS: Sodium Chloride 0.9% 1,000 ML IV SCH (04:29)
[2020-08-28] MEDS: Ampicillin/Sulbactam Na 1.5 GM in Sodium Chloride 0.9% 50 ML IV SCH ×2 (08:47→19:39)
--- NOTE | 2020-08-28 08:56 | CRLUS ---
INDICATION: Dyspnea, elevated D-dimer. TECHNIQUE: : Ultrasound venous duplex lower extremity bilateral. Compression venous exam was performed using live-scale, color Doppler, and spectral Doppler imaging. COMPARISON: None. FINDINGS: Sonographic imaging demonstrates the common femoral, deep femoral, superficial femoral, popliteal, posterior tibial and greater saphenous veins to be fully compressible with normal color Doppler blood flow in both lower extremities. IMPRESSION: Negative bilateral lower extremity venous ultrasound for deep venous thrombosis. Dictated by Gertrude Mcdaniel MD @ Aug 28 2020 8:54AM Signed by Dr. Gertrude Mcdaniel @ Aug 28 2020 8:54AM
[2020-08-28] MEDS ORDERED: Latanoprost 0.005% Ophth Soln 2.5 ML Bottle EYEBOTH SCH ×2 (09:00→21:00)
--- NOTE | 2020-08-28 09:15 | CRLUS ---
CLINICAL HISTORY: Abdominal pain FINDINGS: Sonographic imaging demonstrates normal size and uniform echotexture of the liver. The spleen is of normal size. Pancreas is poorly seen. The proximal abdominal aorta and IVC appear normal. Small amount of perihepatic ascites. Gallbladder full of stones. Gallbladder wall measures 2 millimeters. Positive sonographic Lezama sign per technologist. Common bile duct measures 5 millimeters. The right kidney measures 8.2 cm in length and the left kidney measures cm. There is no evidence of a renal calculus or hydronephrosis. IMPRESSION: 1. Cholelithiasis. Gallbladder wall measures 2 millimeters. Positive sonographic Lezama sign reported by technologist which can be seen with cholecystitis. 2. Small amount of perihepatic ascites. Dictated by Rhonda Montez MD @ Aug 28 2020 9:11AM Signed by Dr. Rhonda Montez @ Aug 28 2020 9:14AM
[2020-08-28] MEDS: Acetaminophen 325 MG Tab PO PRN ×2 (09:44→22:23)
[2020-08-28] MEDS: Metoprolol Succinate 25 MG Tab.ER PO SCH (09:45)
[2020-08-28] MEDS: Aspirin 81 MG Tab.EC PO SCH (09:45)
[2020-08-28] MEDS: predniSONE 10 MG Tab PO SCH ×2 (10:19→17:14)
[2020-08-28] MEDS ORDERED: Sodium Chloride 0.9% 1,000 ML IV SCH ×2 (14:30→16:57)
--- NOTE | 2020-08-28 14:31 | PCM.PN ---
- General Info Date of Service: 08/28/20 Subjective Update: Ms. De La Paz shown some improvement since admission with less abdominal discomfort and nausea. She has been tolerating current diet, but continues to feel fairly weak. White blood cell count has improved from admission. Vital signs have remained stable and she has been afebrile. Renal function modestly improved with IV fluids. Functional Status: Reports: Tolerating Diet, Urinating - Review of Systems General: Reports: Weakness, Fatigue. Denies: Fever, Chills Pulmonary: Reports: No Symptoms Cardiovascular: Reports: No Symptoms Gastrointestinal: Reports: Abdominal Pain, Nausea. Denies: Difficulty Swallowing, Hematochezia, Melena, Vomiting Genitourinary: Reports: No Symptoms - Patient Data Vitals - Most Recent: Last Vital Signs Temp 96.8 F L 08/28/20 11:50 Pulse 90 08/28/20 11:50 Resp 18 08/28/20 11:50 BP 135/85 08/28/20 11:50 Pulse Ox 97 08/28/20 11:50 Weight - Most Recent: 209 lb 6.4 oz I&O - Last 24 Hours: Intake & Output 08/27/20 08/28/20 08/28/20 22:59 06:59 14:59 Intake Total 50 1422 250 Output Total 425 300 Balance 50 997 -50 Lab Results Last 24 Hours: Laboratory Results - last 24 hr 08/27/20 08/27/20 08/27/20 Range/Units 16:55 16:55 16:55 WBC 13.3 H (4.5-11.0) K/uL RBC 5.75 H (3.30-5.50) M/uL Hgb 17.1 H D (12.0-15.0) g/dL Hct 53.3 H (36.0-48.0) % MCV 93 (80-98) fL MCH 30 (27-31) pg MCHC 32 (32-36) % Plt Count 126 L (150-400) K/uL Neut % (Auto) (36-66) % Lymph % (Auto) (24-44) % Thomas % (Auto) (2-6) % Eos % (Auto) (2-4) % Baso % (Auto) (0-1) % D-Dimer, Quantitative 8418.25 H (0.0-500.0) ng/mL Puncture Site ABG pH (7.350-7.450) ABG pCO2 (35.0-42.0) mmHg ABG pO2 (75.0-100.0) mmHg ABG HCO3 (22.0-26.0) mmol/L ABG Total CO2 (21.0-25.0) mmol/L ABG O2 Saturation (95.0-98.0) % ABG O2 Content (15.0-23.0) %vol ABG Base Excess mm/L ABG Hemoglobin (12.0-16.0) g/dL ABG Oxyhemoglobin % ABG Carboxyhemoglobin (0.0-1.6) % ABG Methemoglobin % Paulie Test O2 Delivery Device Sodium 136 L (140-148) mmol/L Potassium 5.0 (3.6-5.2) mmol/L Chloride 98 L (100-108) mmol/L Carbon Dioxide 20 L (21-32) mmol/L Anion Gap 23.0 H (5.0-14.0) mmol/L BUN 55 H D (7-18) mg/dL Creatinine 1.8 H (0.6-1.0) mg/dL Est Cr Clr Drug Dosing 17.01 mL/min Estimated GFR (MDRD) 27 L (>60) Glucose 192 H (74-106) mg/dL Calcium 9.0 (8.5-10.1) mg/dL Magnesium (1.8-2.4) mg/dL Total Bilirubin (0.2-1.0) mg/dL Direct Bilirubin (0.0-0.2) mg/dL Indirect Bilirubin AST (15-37) U/L ALT (12-78) U/L Alkaline Phosphatase (46-116) U/L Ammonia (11-32) mmol/L Troponin I 0.074 H* (0.000-0.056) ng/mL NT-Pro-B Natriuret Pep 94324 H (5-450) pg/mL Total Protein (6.4-8.2) g/dL Albumin (3.4-5.0) g/dL Globulin (2.3-3.5) g/dL Albumin/Globulin Ratio (1.2-2.2) Urine Color (YELLOW) Urine Appearance (CLEAR) Urine pH (5.0-8.0) Ur Specific [place] (1.008-1.030) Urine Protein (NEGATIVE) mg/dL Urine Glucose (UA) (NEGATIVE) mg/dL Urine Ketones (NEGATIVE) mg/dL Urine Occult Blood (NEGATIVE) Urine Nitrite (NEGATIVE) Urine Bilirubin (NEGATIVE) Urine Urobilinogen (0.2-1.0) EU/dL Ur Leukocyte Esterase (NEGATIVE) Urine RBC (0-5) Urine WBC (0-5) Ur Epithelial Cells Amorphous Sediment Urine Bacteria Urine Mucus Urine Other Ethyl Alcohol mg/dL 08/27/20 08/27/20 08/27/20 Range/Units 16:55 16:55 16:55 WBC (4.5-11.0) K/uL RBC (3.30-5.50) M/uL Hgb (12.0-15.0) g/dL Hct (36.0-48.0) % MCV (80-98) fL MCH (27-31) pg MCHC (32-36) % Plt Count (150-400) K/uL Neut % (Auto) (36-66) % Lymph % (Auto) (24-44) % Thomas % (Auto) (2-6) % Eos % (Auto) (2-4) % Baso % (Auto) (0-1) % D-Dimer, Quantitative (0.0-500.0) ng/mL Puncture Site ABG pH (7.350-7.450) ABG pCO2 (35.0-42.0) mmHg ABG pO2 (75.0-100.0) mmHg ABG HCO3 (22.0-26.0) mmol/L ABG Total CO2 (21.0-25.0) mmol/L ABG O2 Saturation (95.0-98.0) % ABG O2 Content (15.0-23.0) %vol ABG Base Excess mm/L ABG Hemoglobin (12.0-16.0) g/dL ABG Oxyhemoglobin % ABG Carboxyhemoglobin (0.0-1.6) % ABG Methemoglobin % Paulie Test O2 Delivery Device Sodium (140-148) mmol/L Potassium (3.6-5.2) mmol/L Chloride (100-108) mmol/L Carbon Dioxide (21-32) mmol/L Anion Gap (5.0-14.0) mmol/L BUN (7-18) mg/dL Creatinine (0.6-1.0) mg/dL Est Cr Clr Drug Dosing mL/min Estimated GFR (MDRD) (>60) Glucose (74-106) mg/dL Calcium (8.5-10.1) mg/dL Magnesium (1.8-2.4) mg/dL Total Bilirubin 3.7 H D (0.2-1.0) mg/dL Direct Bilirubin 1.69 H (0.0-0.2) mg/dL Indirect Bilirubin 2.01 AST 2578 H (15-37) U/L ALT 2372 H (12-78) U/L Alkaline Phosphatase 200 H (46-116) U/L Ammonia < 10 L (11-32) mmol/L Troponin I (0.000-0.056) ng/mL NT-Pro-B Natriuret Pep (5-450) pg/mL Total Protein 6.8 (6.4-8.2) g/dL Albumin 4.0 (3.4-5.0) g/dL Globulin 2.8 (2.3-3.5) g/dL Albumin/Globulin Ratio 1.4 (1.2-2.2) Urine Color (YELLOW) Urine Appearance (CLEAR) Urine pH (5.0-8.0) Ur Specific [place] (1.008-1.030) Urine Protein (NEGATIVE) mg/dL Urine Glucose (UA) (NEGATIVE) mg/dL Urine Ketones (NEGATIVE) mg/dL Urine Occult Blood (NEGATIVE) Urine Nitrite (NEGATIVE) Urine Bilirubin (NEGATIVE) Urine Urobilinogen (0.2-1.0) EU/dL Ur Leukocyte Esterase (NEGATIVE) Urine RBC (0-5) Urine WBC (0-5) Ur Epithelial Cells Amorphous Sediment Urine Bacteria Urine Mucus Urine Other Ethyl Alcohol < 3 mg/dL 08/27/20 08/27/20 08/27/20 Range/Units 17:27 20:18 22:08 WBC (4.5-11.0) K/uL RBC (3.30-5.50) M/uL Hgb (12.0-15.0) g/dL Hct (36.0-48.0) % MCV (80-98) fL MCH (27-31) pg MCHC (32-36) % Plt Count (150-400) K/uL Neut % (Auto) (36-66) % Lymph % (Auto) (24-44) % Thomas % (Auto) (2-6) % Eos % (Auto) (2-4) % Baso % (Auto) (0-1) % D-Dimer, Quantitative (0.0-500.0) ng/mL Puncture Site Lt radial ABG pH 7.385 (7.350-7.450) ABG pCO2 24.5 L (35.0-42.0) mmHg ABG pO2 88.3 (75.0-100.0) mmHg ABG HCO3 14.3 L (22.0-26.0) mmol/L ABG Total CO2 12.3 L (21.0-25.0) mmol/L ABG O2 Saturation 95.7 (95.0-98.0) % ABG O2 Content 21.5 (15.0-23.0) %vol ABG Base Excess -8.5 mm/L ABG Hemoglobin 16.2 H (12.0-16.0) g/dL ABG Oxyhemoglobin 94.1 % ABG Carboxyhemoglobin 1.0 (0.0-1.6) % ABG Methemoglobin 0.7 % Paulie Test Passed O2 Delivery Device Room air Sodium (140-148) mmol/L Potassium (3.6-5.2) mmol/L Chloride (100-108) mmol/L Carbon Dioxide (21-32) mmol/L Anion Gap (5.0-14.0) mmol/L BUN (7-18) mg/dL Creatinine (0.6-1.0) mg/dL Est Cr Clr Drug Dosing mL/min Estimated GFR (MDRD) (>60) Glucose (74-106) mg/dL Calcium (8.5-10.1) mg/dL Magnesium (1.8-2.4) mg/dL Total Bilirubin (0.2-1.0) mg/dL Direct Bilirubin (0.0-0.2) mg/dL Indirect Bilirubin AST (15-37) U/L ALT (12-78) U/L Alkaline Phosphatase (46-116) U/L Ammonia (11-32) mmol/L Troponin I 0.067 H* (0.000-0.056) ng/mL NT-Pro-B Natriuret Pep (5-450) pg/mL Total Protein (6.4-8.2) g/dL Albumin (3.4-5.0) g/dL Globulin (2.3-3.5) g/dL Albumin/Globulin Ratio (1.2-2.2) Urine Color Yellow (YELLOW) Urine Appearance Slightly cloudy A (CLEAR) Urine pH 5.5 (5.0-8.0) Ur Specific [place] >= 1.030 (1.008-1.030) Urine Protein >=300 H (NEGATIVE) mg/dL Urine Glucose (UA) Negative (NEGATIVE) mg/dL Urine Ketones Negative (NEGATIVE) mg/dL Urine Occult Blood Moderate H (NEGATIVE) Urine Nitrite Negative (NEGATIVE) Urine Bilirubin Small H (NEGATIVE) Urine Urobilinogen 1.0 (0.2-1.0) EU/dL Ur Leukocyte Esterase Negative (NEGATIVE) Urine RBC 5-10 H (0-5) Urine WBC 0-5 (0-5) Ur Epithelial Cells Not seen Amorphous Sediment Moderate Urine Bacteria Occasional Urine Mucus Rare Urine Other Ethyl Alcohol mg/dL 08/28/20 08/28/20 Range/Units 04:36 04:36 WBC 12.4 H (4.5-11.0) K/uL RBC 5.19 (3.30-5.50) M/uL Hgb 15.6 H (12.0-15.0) g/dL Hct 47.8 (36.0-48.0) % MCV 92 (80-98) fL MCH 30 (27-31) pg MCHC 33 (32-36) % Plt Count 103 L (150-400) K/uL Neut % (Auto) 86 H (36-66) % Lymph % (Auto) 5 L (24-44) % Thomas % (Auto) 9 H (2-6) % Eos % (Auto) 0 L (2-4) % Baso % (Auto) 0 (0-1) % D-Dimer, Quantitative (0.0-500.0) ng/mL Puncture Site ABG pH (7.350-7.450) ABG pCO2 (35.0-42.0) mmHg ABG pO2 (75.0-100.0) mmHg ABG HCO3 (22.0-26.0) mmol/L ABG Total CO2 (21.0-25.0) mmol/L ABG O2 Saturation (95.0-98.0) % ABG O2 Content (15.0-23.0) %vol ABG Base Excess mm/L ABG Hemoglobin (12.0-16.0) g/dL ABG Oxyhemoglobin % ABG Carboxyhemoglobin (0.0-1.6) % ABG Methemoglobin % Paulie Test O2 Delivery Device Sodium 138 L (140-148) mmol/L Potassium 4.7 (3.6-5.2) mmol/L Chloride 102 (100-108) mmol/L Carbon Dioxide 18 L (21-32) mmol/L Anion Gap 22.7 H (5.0-14.0) mmol/L BUN 51 H (7-18) mg/dL Creatinine 1.6 H (0.6-1.0) mg/dL Est Cr Clr Drug Dosing 19.14 mL/min Estimated GFR (MDRD) 31 L (>60) Glucose 144 H (74-106) mg/dL Calcium 8.1 L (8.5-10.1) mg/dL Magnesium 2.2 (1.8-2.4) mg/dL Total Bilirubin 2.9 H (0.2-1.0) mg/dL Direct Bilirubin (0.0-0.2) mg/dL Indirect Bilirubin AST 1380 H (15-37) U/L ALT 1816 H (12-78) U/L Alkaline Phosphatase 164 H (46-116) U/L Ammonia (11-32) mmol/L Troponin I 0.073 H* (0.000-0.056) ng/mL NT-Pro-B Natriuret Pep (5-450) pg/mL Total Protein 5.2 L (6.4-8.2) g/dL Albumin 3.0 L (3.4-5.0) g/dL Globulin 2.2 L (2.3-3.5) g/dL Albumin/Globulin Ratio 1.4 (1.2-2.2) Urine Color (YELLOW) Urine Appearance (CLEAR) Urine pH (5.0-8.0) Ur Specific [place] (1.008-1.030) Urine Protein (NEGATIVE) mg/dL Urine Glucose (UA) (NEGATIVE) mg/dL Urine Ketones (NEGATIVE) mg/dL Urine Occult Blood (NEGATIVE) Urine Nitrite (NEGATIVE) Urine Bilirubin (NEGATIVE) Urine Urobilinogen (0.2-1.0) EU/dL Ur Leukocyte Esterase (NEGATIVE) Urine RBC (0-5) Urine WBC (0-5) Ur Epithelial Cells Amorphous Sediment Urine Bacteria Urine Mucus Urine Other Ethyl Alcohol mg/dL Med Orders - Current: Current Medications Acetaminophen (Acetaminophen 325 Mg Tab) 650 mg PO Q4H PRN PRN Reason: Pain (Mild 1-3)/fever Last Admin: 08/28/20 09:44 Dose: 650 mg Documented by: Albuterol (Albuterol 0.083% 2.5 Mg/3 Ml Neb Soln) 2.5 mg NEB Q4H PRN PRN Reason: Shortness Of Breath/wheezing Aspirin (Aspirin 81 Mg Tab.Ec) 81 mg PO DAILY [facility] Last Admin: 08/28/20 09:45 Dose: 81 mg Documented by: Citalopram Hydrobromide (Citalopram 20 Mg Tab) 40 mg PO BEDTIME [facility] Last Admin: 08/27/20 20:39 Dose: 40 mg Documented by: Enoxaparin Sodium (Enoxaparin 100 Mg/1 Ml Syringe) 90 mg SUBCUT Q24H [facility] Last Admin: 08/27/20 20:38 Dose: 90 mg Documented by: Ampicillin Sodium/Sulbactam (Sodium 1.5 gm/ Sodium Chloride) 50 mls @ 100 mls/hr IV Q12H [facility] Last Admin: 08/28/20 08:47 Dose: 100 mls/hr Documented by: Sodium Chloride (Normal Saline) 1,000 mls @ 75 mls/hr IV ASDIRECTED [facility] Latanoprost (Latanoprost 0.005% Ophth Soln 2.5 Ml Bottle) 0 ml EYEBOTH BEDTIME [facility] Lisinopril (Lisinopril 20 Mg Tab) 20 mg PO BEDTIME [facility] Last Admin: 08/27/20 20:39 Dose: 20 mg Documented by: Metoprolol Succinate (Metoprolol Succinate 25 Mg Tab.Er) 25 mg PO DAILY [facility] Last Admin: 08/28/20 09:45 Dose: 25 mg Documented by: Ondansetron HCl (Ondansetron 4 Mg/2 Ml Sdv) 4 mg IV Q4H PRN PRN Reason: Nausea/Vomiting Polyethylene Glycol (Polyethylene Glycol 3350 Powder 17 Gm Packet) 17 gm PO DAILY PRN PRN Reason: Constipation Prednisone (Prednisone 10 Mg Tab) 10 mg PO BIDMEALS ALEKSANDRA Stop: 08/30/20 17:01 Last Admin: 08/28/20 10:19 Dose: 10 mg Documented by: Prednisone (Prednisone 10 Mg Tab) 10 mg PO DAILY [facility] Sodium Chloride (Sodium Chloride 0.9% 10 Ml Syringe) 10 ml FLUSH ASDIRECTED PRN PRN Reason: Keep Vein Open Discontinued Medications Sodium Chloride (Normal Saline) 1,000 mls @ 1,000 mls/hr IV .BOLUS ONE Stop: 08/27/20 18:46 Last Admin: 08/27/20 17:52 Dose: 1,000 mls/hr Documented by: Sodium Chloride (Normal Saline) 1,000 mls @ 125 mls/hr IV ASDIRECTED ALEKSANDRA Last Admin: 08/28/20 04:29 Dose: 125 mls/hr Documented by: Lisinopril (Lisinopril 10 Mg Tab) Confirm Administered Dose 20 mg .ROUTE .STK- MED ONE Stop: 08/27/20 20:36 Last Admin: 08/27/20 20:39 Dose: Not Given Documented by: Sodium Chloride (Sodium Chloride 0.9% 10 Ml Syringe) 10 ml FLUSH ASDIRECTED PRN PRN Reason: Keep Vein Open Last Admin: 08/27/20 17:08 Dose: 10 ml Documented by: - Exam Quality Assessment: DVT Prophylaxis General: Alert, Oriented, Cooperative, Mild Distress Lungs: Clear to Auscultation, Normal Respiratory Effort Cardiovascular: Regular Rate, Regular Rhythm, No Murmurs GI/Abdominal Exam: Soft, Non-Tender, No Organomegaly, No Distention Extremities: Non-Tender, No Pedal Edema - Patient Data Lab Results Last 24 hrs: Laboratory Results - last 24 hr 08/27/20 08/27/20 08/27/20 Range/Units 16:55 16:55 16:55 WBC 13.3 H (4.5-11.0) K/uL RBC 5.75 H (3.30-5.50) M/uL Hgb 17.1 H D (12.0-15.0) g/dL Hct 53.3 H (36.0-48.0) % MCV 93 (80-98) fL MCH 30 (27-31) pg MCHC 32 (32-36) % Plt Count 126 L (150-400) K/uL Neut % (Auto) (36-66) % Lymph % (Auto) (24-44) % Thomas % (Auto) (2-6) % Eos % (Auto) (2-4) % Baso % (Auto) (0-1) % D-Dimer, Quantitative 8418.25 H (0.0-500.0) ng/mL Puncture Site ABG pH (7.350-7.450) ABG pCO2 (35.0-42.0) mmHg ABG pO2 (75.0-100.0) mmHg ABG HCO3 (22.0-26.0) mmol/L ABG Total CO2 (21.0-25.0) mmol/L ABG O2 Saturation (95.0-98.0) % ABG O2 Content (15.0-23.0) %vol ABG Base Excess mm/L ABG Hemoglobin (12.0-16.0) g/dL ABG Oxyhemoglobin % ABG Carboxyhemoglobin (0.0-1.6) % ABG Methemoglobin % Paulie Test O2 Delivery Device Sodium 136 L (140-148) mmol/L Potassium 5.0 (3.6-5.2) mmol/L Chloride 98 L (100-108) mmol/L Carbon Dioxide 20 L (21-32) mmol/L Anion Gap 23.0 H (5.0-14.0) mmol/L BUN 55 H D (7-18) mg/dL Creatinine 1.8 H (0.6-1.0) mg/dL Est Cr Clr Drug Dosing 17.01 mL/min Estimated GFR (MDRD) 27 L (>60) Glucose 192 H (74-106) mg/dL Calcium 9.0 (8.5-10.1) mg/dL Magnesium (1.8-2.4) mg/dL Total Bilirubin (0.2-1.0) mg/dL Direct Bilirubin (0.0-0.2) mg/dL Indirect Bilirubin AST (15-37) U/L ALT (12-78) U/L Alkaline Phosphatase (46-116) U/L Ammonia (11-32) mmol/L Troponin I 0.074 H* (0.000-0.056) ng/mL NT-Pro-B Natriuret Pep 46722 H (5-450) pg/mL Total Protein (6.4-8.2) g/dL Albumin (3.4-5.0) g/dL Globulin (2.3-3.5) g/dL Albumin/Globulin Ratio (1.2-2.2) Urine Color (YELLOW) Urine Appearance (CLEAR) Urine pH (5.0-8.0) Ur Specific [place] (1.008-1.030) Urine Protein (NEGATIVE) mg/dL Urine Glucose (UA) (NEGATIVE) mg/dL Urine Ketones (NEGATIVE) mg/dL Urine Occult Blood (NEGATIVE) Urine Nitrite (NEGATIVE) Urine Bilirubin (NEGATIVE) Urine Urobilinogen (0.2-1.0) EU/dL Ur Leukocyte Esterase (NEGATIVE) Urine RBC (0-5) Urine WBC (0-5) Ur Epithelial Cells Amorphous Sediment Urine Bacteria Urine Mucus Urine Other Ethyl Alcohol mg/dL 08/27/20 08/27/20 08/27/20 Range/Units 16:55 16:55 16:55 WBC (4.5-11.0) K/uL RBC (3.30-5.50) M/uL Hgb (12.0-15.0) g/dL Hct (36.0-48.0) % MCV (80-98) fL MCH (27-31) pg MCHC (32-36) % Plt Count (150-400) K/uL Neut % (Auto) (36-66) % Lymph % (Auto) (24-44) % Thomas % (Auto) (2-6) % Eos % (Auto) (2-4) % Baso % (Auto) (0-1) % D-Dimer, Quantitative (0.0-500.0) ng/mL Puncture Site ABG pH (7.350-7.450) ABG pCO2 (35.0-42.0) mmHg ABG pO2 (75.0-100.0) mmHg ABG HCO3 (22.0-26.0) mmol/L ABG Total CO2 (21.0-25.0) mmol/L ABG O2 Saturation (95.0-98.0) % ABG O2 Content (15.0-23.0) %vol ABG Base Excess mm/L ABG Hemoglobin (12.0-16.0) g/dL ABG Oxyhemoglobin % ABG Carboxyhemoglobin (0.0-1.6) % ABG Methemoglobin % Paulie Test O2 Delivery Device Sodium (140-148) mmol/L Potassium (3.6-5.2) mmol/L Chloride (100-108) mmol/L Carbon Dioxide (21-32) mmol/L Anion Gap (5.0-14.0) mmol/L BUN (7-18) mg/dL Creatinine (0.6-1.0) mg/dL Est Cr Clr Drug Dosing mL/min Estimated GFR (MDRD) (>60) Glucose (74-106) mg/dL Calcium (8.5-10.1) mg/dL Magnesium (1.8-2.4) mg/dL Total Bilirubin 3.7 H D (0.2-1.0) mg/dL Direct Bilirubin 1.69 H (0.0-0.2) mg/dL Indirect Bilirubin 2.01 AST 2578 H (15-37) U/L ALT 2372 H (12-78) U/L Alkaline Phosphatase 200 H (46-116) U/L Ammonia < 10 L (11-32) mmol/L Troponin I (0.000-0.056) ng/mL NT-Pro-B Natriuret Pep (5-450) pg/mL Total Protein 6.8 (6.4-8.2) g/dL Albumin 4.0 (3.4-5.0) g/dL Globulin 2.8 (2.3-3.5) g/dL Albumin/Globulin Ratio 1.4 (1.2-2.2) Urine Color (YELLOW) Urine Appearance (CLEAR) Urine pH (5.0-8.0) Ur Specific [place] (1.008-1.030) Urine Protein (NEGATIVE) mg/dL Urine Glucose (UA) (NEGATIVE) mg/dL Urine Ketones (NEGATIVE) mg/dL Urine Occult Blood (NEGATIVE) Urine Nitrite (NEGATIVE) Urine Bilirubin (NEGATIVE) Urine Urobilinogen (0.2-1.0) EU/dL Ur Leukocyte Esterase (NEGATIVE) Urine RBC (0-5) Urine WBC (0-5) Ur Epithelial Cells Amorphous Sediment Urine Bacteria Urine Mucus Urine Other Ethyl Alcohol < 3 mg/dL 08/27/20 08/27/20 08/27/20 Range/Units 17:27 20:18 22:08 WBC (4.5-11.0) K/uL RBC (3.30-5.50) M/uL Hgb (12.0-15.0) g/dL Hct (36.0-48.0) % MCV (80-98) fL MCH (27-31) pg MCHC (32-36) % Plt Count (150-400) K/uL Neut % (Auto) (36-66) % Lymph % (Auto) (24-44) % Thomas % (Auto) (2-6) % Eos % (Auto) (2-4) % Baso % (Auto) (0-1) % D-Dimer, Quantitative (0.0-500.0) ng/mL Puncture Site Lt radial ABG pH 7.385 (7.350-7.450) ABG pCO2 24.5 L (35.0-42.0) mmHg ABG pO2 88.3 (75.0-100.0) mmHg ABG HCO3 14.3 L (22.0-26.0) mmol/L ABG Total CO2 12.3 L (21.0-25.0) mmol/L ABG O2 Saturation 95.7 (95.0-98.0) % ABG O2 Content 21.5 (15.0-23.0) %vol ABG Base Excess -8.5 mm/L ABG Hemoglobin 16.2 H (12.0-16.0) g/dL ABG Oxyhemoglobin 94.1 % ABG Carboxyhemoglobin 1.0 (0.0-1.6) % ABG Methemoglobin 0.7 % Paulie Test Passed O2 Delivery Device Room air Sodium (140-148) mmol/L Potassium (3.6-5.2) mmol/L Chloride (100-108) mmol/L Carbon Dioxide (21-32) mmol/L Anion Gap (5.0-14.0) mmol/L BUN (7-18) mg/dL Creatinine (0.6-1.0) mg/dL Est Cr Clr Drug Dosing mL/min Estimated GFR (MDRD) (>60) Glucose (74-106) mg/dL Calcium (8.5-10.1) mg/dL Magnesium (1.8-2.4) mg/dL Total Bilirubin (0.2-1.0) mg/dL Direct Bilirubin (0.0-0.2) mg/dL Indirect Bilirubin AST (15-37) U/L ALT (12-78) U/L Alkaline Phosphatase (46-116) U/L Ammonia (11-32) mmol/L Troponin I 0.067 H* (0.000-0.056) ng/mL NT-Pro-B Natriuret Pep (5-450) pg/mL Total Protein (6.4-8.2) g/dL Albumin (3.4-5.0) g/dL Globulin (2.3-3.5) g/dL Albumin/Globulin Ratio (1.2-2.2) Urine Color Yellow (YELLOW) Urine Appearance Slightly cloudy A (CLEAR) Urine pH 5.5 (5.0-8.0) Ur Specific [place] >= 1.030 (1.008-1.030) Urine Protein >=300 H (NEGATIVE) mg/dL Urine Glucose (UA) Negative (NEGATIVE) mg/dL Urine Ketones Negative (NEGATIVE) mg/dL Urine Occult Blood Moderate H (NEGATIVE) Urine Nitrite Negative (NEGATIVE) Urine Bilirubin Small H (NEGATIVE) Urine Urobilinogen 1.0 (0.2-1.0) EU/dL Ur Leukocyte Esterase Negative (NEGATIVE) Urine RBC 5-10 H (0-5) Urine WBC 0-5 (0-5) Ur Epithelial Cells Not seen Amorphous Sediment Moderate Urine Bacteria Occasional Urine Mucus Rare Urine Other Ethyl Alcohol mg/dL 08/28/20 08/28/20 Range/Units 04:36 04:36 WBC 12.4 H (4.5-11.0) K/uL RBC 5.19 (3.30-5.50) M/uL Hgb 15.6 H (12.0-15.0) g/dL Hct 47.8 (36.0-48.0) % MCV 92 (80-98) fL MCH 30 (27-31) pg MCHC 33 (32-36) % Plt Count 103 L (150-400) K/uL Neut % (Auto) 86 H (36-66) % Lymph % (Auto) 5 L (24-44) % Thomas % (Auto) 9 H (2-6) % Eos % (Auto) 0 L (2-4) % Baso % (Auto) 0 (0-1) % D-Dimer, Quantitative (0.0-500.0) ng/mL Puncture Site ABG pH (7.350-7.450) ABG pCO2 (35.0-42.0) mmHg ABG pO2 (75.0-100.0) mmHg ABG HCO3 (22.0-26.0) mmol/L ABG Total CO2 (21.0-25.0) mmol/L ABG O2 Saturation (95.0-98.0) % ABG O2 Content (15.0-23.0) %vol ABG Base Excess mm/L ABG Hemoglobin (12.0-16.0) g/dL ABG Oxyhemoglobin % ABG Carboxyhemoglobin (0.0-1.6) % ABG Methemoglobin % Paulie Test O2 Delivery Device Sodium 138 L (140-148) mmol/L Potassium 4.7 (3.6-5.2) mmol/L Chloride 102 (100-108) mmol/L Carbon Dioxide 18 L (21-32) mmol/L Anion Gap 22.7 H (5.0-14.0) mmol/L BUN 51 H (7-18) mg/dL Creatinine 1.6 H (0.6-1.0) mg/dL Est Cr Clr Drug Dosing 19.14 mL/min Estimated GFR (MDRD) 31 L (>60) Glucose 144 H (74-106) mg/dL Calcium 8.1 L (8.5-10.1) mg/dL Magnesium 2.2 (1.8-2.4) mg/dL Total Bilirubin 2.9 H (0.2-1.0) mg/dL Direct Bilirubin (0.0-0.2) mg/dL Indirect Bilirubin AST 1380 H (15-37) U/L ALT 1816 H (12-78) U/L Alkaline Phosphatase 164 H (46-116) U/L Ammonia (11-32) mmol/L Troponin I 0.073 H* (0.000-0.056) ng/mL NT-Pro-B Natriuret Pep (5-450) pg/mL Total Protein 5.2 L (6.4-8.2) g/dL Albumin 3.0 L (3.4-5.0) g/dL Globulin 2.2 L (2.3-3.5) g/dL Albumin/Globulin Ratio 1.4 (1.2-2.2) Urine Color (YELLOW) Urine Appearance (CLEAR) Urine pH (5.0-8.0) Ur Specific [place] (1.008-1.030) Urine Protein (NEGATIVE) mg/dL Urine Glucose (UA) (NEGATIVE) mg/dL Urine Ketones (NEGATIVE) mg/dL Urine Occult Blood (NEGATIVE) Urine Nitrite (NEGATIVE) Urine Bilirubin (NEGATIVE) Urine Urobilinogen (0.2-1.0) EU/dL Ur Leukocyte Esterase (NEGATIVE) Urine RBC (0-5) Urine WBC (0-5) Ur Epithelial Cells Amorphous Sediment Urine Bacteria Urine Mucus Urine Other Ethyl Alcohol mg/dL Result Diagrams: 08/28/20 04:36 08/28/20 04:36 Sepsis Event Note - Evaluation Sepsis Screening Result: Severe Sepsis Risk - Focused Exam Vital Signs: Vital Signs Temp Pulse Pulse Resp BP BP Pulse Ox 08/28/20 11:50 96.8 F L 90 18 135/85 97 08/28/20 09:45 91 141/82 H 08/28/20 08:44 97.0 F 91 22 H 141/82 H 97 08/28/20 03:00 97.0 F 93 24 H 134/81 97 - Problem List Review Problem List Initiated/Reviewed/Updated: Yes - My Orders Last 24 Hours: My Active Orders 08/27/20 19:35 Resuscitation Status Routine 08/27/20 19:55 Acetaminophen [TylenoL] 650 mg PO Q4H PRN Albuterol [Proventil Neb Soln] 2.5 mg NEB Q4H PRN Ondansetron [Zofran] 4 mg IV Q4H PRN Sodium Chloride 0.9% [Saline Flush] 10 ml FLUSH ASDIRECTED PRN polyethylene glycoL 3350 [MiraLAX] 17 gm PO DAILY PRN 08/27/20 19:55 Patient Status [ADT] Routine Ambulate [RC] QID Cardiac Monitoring [RC] .As Directed Height and Weight [RC] 0500 Intake and Output [RC] QSHIFT Notify Provider Vital Signs [RC] ASDIRECTED Oxygen Therapy [RC] PRN Peripheral IV Care [RC] Q12H RT Aerosol Therapy [RC] ASDIRECTED Up With Assistance [RC] ASDIRECTED Up to Chair [RC] QID VTE/DVT Education [RC] Per Unit Routine Vital Signs [RC] Q4H PT Evaluation and Treatment [CONS] Routine Peripheral IV Insertion Adult [OM.PC] Routine VTE Pharmacological Contraindications [AST] Per Unit Routine 08/27/20 20:00 Ampicillin/Sulbactam Na [Unasyn] 1.5 gm Sodium Chloride 0.9% [Normal Saline] 50 ml IV Q12H 08/27/20 21:00 Citalopram [Celexa] 40 mg PO BEDTIME Enoxaparin [Lovenox] 90 mg SUBCUT Q24H lisinopriL [Prinivil] 20 mg PO BEDTIME 08/28/20 09:00 Aspirin [Halfprin] 81 mg PO DAILY Metoprolol Succinate [Toprol XL] 25 mg PO DAILY 08/28/20 09:30 predniSONE 10 mg PO BIDMEALS 08/28/20 Lunch Clear Liquid Diet [DIET] 08/28/20 14:30 Sodium Chloride 0.9% @ 75 MLS/HR(1000ml) Sodium Chloride 0.9% [Normal Saline] 1,000 ml IV ASDIRECTED 08/28/20 21:00 Latanoprost [Xalatan 0.005% Ophth Soln] 0 ml EYEBOTH BEDTIME 08/29/20 05:00 CBC WITH AUTO DIFF [HEME] Timed COMPREHENSIVE METABOLIC PN,CMP [CHEM] Timed 08/29/20 08:00 Cholangiopancreatography [MR] Urgent Echo Comp wo Cont [US] Urgent Lung Vent Perfusion [NM] Urgent 08/31/20 09:00 predniSONE 10 mg PO DAILY - Plan Plan:: ASSESSMENT AND PLAN CHOLECYSTITIS-likely cause of current liver enzyme elevation including bilirubin, question possible underlying biliary obstruction. She has had symptoms of abdominal pain and nausea with eating over the past several days. Ultrasound from this morning shows evidence of cholelithiasis, gallbladder wall thickening and positive Lezama sign. Bilirubin and other liver studies have improved since admission. -Pain and nausea medication as needed -Empiric antibiotic therapy with Unasyn 1.5 g IV every 6 hours -IV fluids for hydration -MRCP in a.m. -Reassess liver tests in a.m. DYSPNEA-she does have a known history of coronary artery disease but denies history of congestive heart failure or COPD. She has adequate oxygenation on room air, but respiratory rate is elevated. Known history of previous deep vein thrombosis x2, she denies any history of pulmonary emboli. D-dimer has increased significantly over the last week. She is not a candidate for CT scan of the chest with IV contrast because of her renal insufficiency. Venous Doppler studies of both lower extremities were negative -Therapeutic anticoagulation pending further evaluation; Lovenox 90 mg subcu every 12 hours -VQ scan Saturday when available -Supplemental oxygen as needed DEHYDRATION/WEAKNESS-secondary to current illness and recent diuretic therapy -Hold furosemide -IV fluids for hydration, reassess in a.m. CHRONIC KIDNEY DISEASE STAGE IIIb-mild improvement in renal function with hydration -IV fluids as above -Closely monitor urine output and renal function ELEVATED TROPONIN-Elevated troponin is likely secondary to current illness and underlying renal insufficiency. Troponin levels have been stable on follow-up MAINTENANCE ISSUES -DVT prophylaxis; current therapy with Lovenox should provide adequate DVT prophylaxis -GI prophylaxis; not indicated -Dozier catheter; not indicated -Nutrition; regular diet -Nicotine dependence; not required CODE STATUS-DNR/DNI ADMISSION STATUS-patient will be admitted to inpatient status, expect at least a 2 night hospital stay for evaluation and management of problems as outlined above. At the time of this admission I do not reasonably expected evaluation and management of this problem will require more than a 96 hour hospital stay. DISPOSITION-anticipate discharge to home after the hospital stay. PRIMARY CARE PROVIDER-Donavan Small
[2020-08-28] MEDS ORDERED: Sodium Chloride 0.9% 1,000 ML IV ONE (20:03)
[2020-08-28] MEDS: Enoxaparin 100 MG/1 ML Syringe SUBCUT SCH (20:40)
[2020-08-28] MEDS: Citalopram 20 MG Tab PO SCH (20:40)
[2020-08-28] MEDS: Lisinopril 20 MG Tab PO SCH (20:41)
[2020-08-29] MEDS: Sodium Chloride 0.9% 1,000 ML IV SCH ×2 (00:17→04:18)
--- NOTE | 2020-08-29 09:23 | CR ---
CHEST: Portable 08/27/2020 at 5:37 PM CLINICAL HISTORY:SOB COMPARISON:08/22/2020 FINDINGS: The heart is enlarged. Pulmonary vascularity is normal. There are atherosclerotic changes in the aorta. Lungs are clear. Impression: Moderate cardiomegaly No acute cardiomegaly process
[2020-08-29] MEDS: Metoprolol Succinate 25 MG Tab.ER PO SCH (09:40)
[2020-08-29] MEDS: predniSONE 10 MG Tab PO SCH (09:40)
[2020-08-29] MEDS: Ampicillin/Sulbactam Na 1.5 GM in Sodium Chloride 0.9% 50 ML IV SCH (09:40)
[2020-08-29] MEDS: Aspirin 81 MG Tab.EC PO SCH (09:41)
--- NOTE | 2020-08-29 10:58 | NM ---
Lung Vent Perfusion CLINICAL HISTORY: Dilated d-dimer. COMPARISON: CT chest 08/22/2020 TECHNIQUE: Sequential posterior camera images were obtained over the lungs after the inhalation of 1.0 mCi of technetium DTPA. The study performed in equilibrium. No washout views are performed. Eight views of the lungs were obtained following the intravenous administration of 5.3 millicuries of technetium-99m macroaggregated albumin. FINDINGS: Cardiac silhouette is enlarged there is some mild heterogeneity on the posterior view without segmental or lobar defects. IMPRESSION: No significant ventilation/perfusion mismatch. Study is felt to represent a low probability of pulmonary embolus Cardiomegaly
--- NOTE | 2020-08-29 10:59 | PCM.PN ---
- General Info Date of Service: 08/29/20 Subjective Update: No acute events overnight. Patient is quite sleepy today after completing an MRCP and ventilation/perfusion scan, The results of which are still pending. She does not report any abdominal pain. She has not had any nausea. There is concern about purple discoloration of multiple toes on both feet. She has not had any fevers. Hepatic panel numbers have improved steadily during the hospital stay but remain elevated. No report of diarrhea. She does not appear short of breath. Functional Status: Reports: Pain Controlled - Patient Data Vitals - Most Recent: Last Vital Signs Temp 36.3 C 08/29/20 10:38 Pulse 84 08/29/20 10:38 Resp 16 08/29/20 10:38 BP 132/82 08/29/20 10:38 Pulse Ox 98 08/29/20 10:38 Weight - Most Recent: 97.522 kg I&O - Last 24 Hours: Intake & Output 08/28/20 08/29/20 08/29/20 22:59 06:59 14:59 Intake Total 3564 792 50 Output Total 170 175 100 Balance 3394 617 -50 Lab Results Last 24 Hours: Laboratory Results - last 24 hr 08/29/20 08/29/20 Range/Units 05:55 05:55 WBC 11.7 H (4.5-11.0) K/uL RBC 5.43 (3.30-5.50) M/uL Hgb 16.1 H (12.0-15.0) g/dL Hct 50.6 H (36.0-48.0) % MCV 93 (80-98) fL MCH 30 (27-31) pg MCHC 32 (32-36) % Plt Count 121 L (150-400) K/uL Neut % (Auto) 88 H (36-66) % Lymph % (Auto) 4 L (24-44) % [place] % (Auto) 8 H (2-6) % Eos % (Auto) 0 L (2-4) % Baso % (Auto) 0 (0-1) % Sodium 140 (140-148) mmol/L Potassium 4.7 (3.6-5.2) mmol/L Chloride 106 (100-108) mmol/L Carbon Dioxide 19 L (21-32) mmol/L Anion Gap 19.7 H (5.0-14.0) mmol/L BUN 44 H (7-18) mg/dL Creatinine 1.5 H (0.6-1.0) mg/dL Est Cr Clr Drug Dosing 20.41 mL/min Estimated GFR (MDRD) 33 L (>60) Glucose 164 H (74-106) mg/dL Calcium 7.4 L (8.5-10.1) mg/dL Total Bilirubin 2.6 H (0.2-1.0) mg/dL AST 320 H D (15-37) U/L ALT 1219 H (12-78) U/L Alkaline Phosphatase 173 H (46-116) U/L Total Protein 5.1 L (6.4-8.2) g/dL Albumin 2.9 L (3.4-5.0) g/dL Globulin 2.2 L (2.3-3.5) g/dL Albumin/Globulin Ratio 1.3 (1.2-2.2) Med Orders - Current: Current Medications Acetaminophen (Acetaminophen 325 Mg Tab) 650 mg PO Q4H PRN PRN Reason: Pain (Mild 1-3)/fever Last Admin: 08/28/20 22:23 Dose: 650 mg Documented by: Albuterol (Albuterol 0.083% 2.5 Mg/3 Ml Neb Soln) 2.5 mg NEB Q4H PRN PRN Reason: Shortness Of Breath/wheezing Aspirin (Aspirin 81 Mg Tab.Ec) 81 mg PO DAILY [facility] Last Admin: 08/29/20 09:41 Dose: 81 mg Documented by: Citalopram Hydrobromide (Citalopram 20 Mg Tab) 40 mg PO BEDTIME [facility] Last Admin: 08/28/20 20:40 Dose: 40 mg Documented by: Enoxaparin Sodium (Enoxaparin 100 Mg/1 Ml Syringe) 90 mg SUBCUT Q24H [facility] Last Admin: 08/28/20 20:40 Dose: 90 mg Documented by: Ampicillin Sodium/Sulbactam (Sodium 1.5 gm/ Sodium Chloride) 50 mls @ 100 mls/hr IV Q12H [facility] Last Admin: 08/29/20 09:40 Dose: 100 mls/hr Documented by: Sodium Chloride (Normal Saline) 1,000 mls @ 125 mls/hr IV ASDIRECTED [facility] Last Admin: 08/29/20 04:18 Dose: 125 mls/hr Documented by: Latanoprost (Latanoprost 0.005% Ophth Soln 2.5 Ml Bottle) 0 ml EYEBOTH BEDTIME [facility] Last Admin: 08/28/20 20:40 Dose: 1 drop Documented by: Lisinopril (Lisinopril 20 Mg Tab) 20 mg PO BEDTIME [facility] Last Admin: 08/28/20 20:41 Dose: 20 mg Documented by: Metoprolol Succinate (Metoprolol Succinate 25 Mg Tab.Er) 25 mg PO DAILY [facility] Last Admin: 08/29/20 09:40 Dose: 25 mg Documented by: Ondansetron HCl (Ondansetron 4 Mg/2 Ml Sdv) 4 mg IV Q4H PRN PRN Reason: Nausea/Vomiting Polyethylene Glycol (Polyethylene Glycol 3350 Powder 17 Gm Packet) 17 gm PO DAILY PRN PRN Reason: Constipation Prednisone (Prednisone 10 Mg Tab) 10 mg PO BIDMEALS [facility] Stop: 08/30/20 17:01 Last Admin: 08/29/20 09:40 Dose: 10 mg Documented by: Prednisone (Prednisone 10 Mg Tab) 10 mg PO DAILY [facility] Sodium Chloride (Sodium Chloride 0.9% 10 Ml Syringe) 10 ml FLUSH ASDIRECTED PRN PRN Reason: Keep Vein Open Discontinued Medications Sodium Chloride (Normal Saline) 1,000 mls @ 1,000 mls/hr IV .BOLUS ONE Stop: 08/27/20 18:46 Last Admin: 08/27/20 17:52 Dose: 1,000 mls/hr Documented by: Sodium Chloride (Normal Saline) 1,000 mls @ 125 mls/hr IV ASDIRECTED [facility] Last Admin: 08/28/20 04:29 Dose: 125 mls/hr Documented by: Sodium Chloride (Normal Saline) 1,000 mls @ 75 mls/hr IV ASDIRECTED [facility] Sodium Chloride (Normal Saline) 1,000 mls @ 500 mls/hr IV ASDIRECTED [facility] Stop: 08/28/20 18:56 Last Admin: 08/28/20 17:12 Dose: 500 mls/hr Documented by: Sodium Chloride (Normal Saline) 1,000 mls @ 250 mls/hr IV ONETIME ONE Stop: 08/29/20 00:02 Last Admin: 08/28/20 20:16 Dose: 250 mls/hr Documented by: Lisinopril (Lisinopril 10 Mg Tab) Confirm Administered Dose 20 mg .ROUTE .STK- MED ONE Stop: 08/27/20 20:36 Last Admin: 08/27/20 20:39 Dose: Not Given Documented by: Sodium Chloride (Sodium Chloride 0.9% 10 Ml Syringe) 10 ml FLUSH ASDIRECTED PRN PRN Reason: Keep Vein Open Last Admin: 08/27/20 17:08 Dose: 10 ml Documented by: - Exam Quality Assessment: Supplemental Oxygen General: Alert, Cooperative, No Acute Distress, Lethargic Lungs: Clear to Auscultation, Normal Respiratory Effort Cardiovascular: Regular Rate, Regular Rhythm, Murmurs GI/Abdominal Exam: Normal Bowel Sounds, Soft, No Distention Extremities: No Pedal Edema, Other (Purple discoloration of toes 1 2 and 3 on both feet. Both feet are cool to touch). No: Increased Warmth Skin: Warm, Dry, Cool (Both feet) Psy/Mental Status: Alert. No: Agitated - Patient Data Lab Results Last 24 hrs: Laboratory Results - last 24 hr 08/29/20 08/29/20 Range/Units 05:55 05:55 WBC 11.7 H (4.5-11.0) K/uL RBC 5.43 (3.30-5.50) M/uL Hgb 16.1 H (12.0-15.0) g/dL Hct 50.6 H (36.0-48.0) % MCV 93 (80-98) fL MCH 30 (27-31) pg MCHC 32 (32-36) % Plt Count 121 L (150-400) K/uL Neut % (Auto) 88 H (36-66) % Lymph % (Auto) 4 L (24-44) % [place] % (Auto) 8 H (2-6) % Eos % (Auto) 0 L (2-4) % Baso % (Auto) 0 (0-1) % Sodium 140 (140-148) mmol/L Potassium 4.7 (3.6-5.2) mmol/L Chloride 106 (100-108) mmol/L Carbon Dioxide 19 L (21-32) mmol/L Anion Gap 19.7 H (5.0-14.0) mmol/L BUN 44 H (7-18) mg/dL Creatinine 1.5 H (0.6-1.0) mg/dL Est Cr Clr Drug Dosing 20.41 mL/min Estimated GFR (MDRD) 33 L (>60) Glucose 164 H (74-106) mg/dL Calcium 7.4 L (8.5-10.1) mg/dL Total Bilirubin 2.6 H (0.2-1.0) mg/dL AST 320 H D (15-37) U/L ALT 1219 H (12-78) U/L Alkaline Phosphatase 173 H (46-116) U/L Total Protein 5.1 L (6.4-8.2) g/dL Albumin 2.9 L (3.4-5.0) g/dL Globulin 2.2 L (2.3-3.5) g/dL Albumin/Globulin Ratio 1.3 (1.2-2.2) Result Diagrams: 08/29/20 05:55 08/29/20 05:55 Sepsis Event Note - Evaluation Sepsis Screening Result: No Definite Risk - Focused Exam Vital Signs: Vital Signs Temp Pulse Pulse Resp BP BP Pulse Ox 08/29/20 10:38 36.3 C 84 16 132/82 98 08/29/20 09:40 62 138/85 08/29/20 07:00 36.1 C 62 22 H 138/85 92 L 08/29/20 03:32 36.1 C 79 18 121/73 100 - Problem List Review Problem List Initiated/Reviewed/Updated: Yes - My Orders Last 24 Hours: My Active Orders 08/29/20 08:09 LACTIC ACID [CHEM] Routine 08/29/20 11:00 Dextrose 5%-0.9% NaCl with KCl [D5 NS with 20 mEq KCl] 1,000 ml IV ASDIRECTED 08/30/20 05:00 CBC W/O DIFF,HEMOGRAM [HEME] Timed (1) COMPREHENSIVE METABOLIC PN,CMP [CHEM] Timed - Plan Plan:: ASSESSMENT AND PLAN ACUTE CALCULUS CHOLECYSTITIS-likely cause of current liver enzyme elevation including bilirubin, question possible underlying biliary obstruction. Pain has been improving. AST, ALT and bilirubin improving. MRCP complete but radiology interpretation pending. Patient still appears ill and will need her gallbladder out once cleared from a cardiopulmonary standpoint. -Pain and nausea medication as needed -Lactic acid level -Empiric antibiotic therapy with Unasyn 1.5 g IV every 6 hours -Gentle IV fluids -follow-up MRCP -Reassess liver tests in a.m. [id number] significantly elevated. could be related to metabolic acidosis and acute illness. -Therapeutic anticoagulation pending further evaluation; Lovenox 90 mg subcu every 12 hours -Follow-up VQ scan -Follow-up echocardiogram -Supplemental oxygen as needed DEHYDRATION/WEAKNESS-secondary to current illness and recent diuretic therapy -Hold furosemide -Gentle IV fluids CHRONIC KIDNEY DISEASE STAGE IIIb-mild improvement in renal function with hydration. Complicated by metabolic acidosis. -IV fluids as above -Closely monitor urine output and renal function ELEVATED TROPONIN-Elevated troponin is likely secondary to current illness and underlying renal insufficiency. MAINTENANCE ISSUES -DVT prophylaxis; current therapy with Lovenox should provide adequate DVT prophylaxis -GI prophylaxis; not indicated -Dozier catheter; not indicated -Nutrition; regular diet DISPOSITION-anticipate discharge to home after the hospital stay. Lino Shukla MD
[2020-08-29] MEDS ORDERED: Dextrose 5%-0.9% NaCl with KCl 1,000 ML IV SCH (11:00)
--- NOTE | 2020-08-29 11:15 | MR ---
Cholangiopancreatography CLINICAL HISTORY: Right upper quadrant pain, cholelithiasis COMPARISON: CT 08/22/2020 ultrasound 08/28/2020 TECHNIQUE: Multiple images of the biliary system were obtained. All images were obtained on a 1.5 Marylu Siemens unit. FINDINGS: There is significant breathing motion on all series which significantly reduce resolution. The gallbladder is stone filled. No intrahepatic or common duct dilatation is identified. Pancreatic duct is not dilated. There is fluid in the gallbladder fossa and along the right lateral margin. Patient has bilateral pleural effusions. IMPRESSION: Very limited study Cholelithiasis without biliary dilatation There is fluid in the gallbladder fossa and along the liver margins. This may represent some nonspecific ascites or may be related to cholecystitis
--- NOTE | 2020-08-29 16:25 | PCM.DCSUM1 ---
Discharge Summary - Hospital Course Brief History: 84-year-old female with history of coronary artery disease with stenting about 2 years ago who presented with progressive dyspnea and upper abdominal pain. She was admitted to the hospital for management of presumed acute cholecystitis with cholelithiasis as well as evaluation of possible pulmonary embolism. Diagnosis: Stroke: No - Discharge Data Discharge Date: 08/29/20 Discharge Disposition: DC/Tfer to [facility] Condition: Stable - Referral to Home Health Primary Care Physician: Donavan Small NP - Discharge Diagnosis/Problem(s) (1) Intracardiac thrombosis SNOMED Code(s): 397438002 ICD Code: I51.3 - INTRACARDIAC THROMBOSIS, NOT ELSEWHERE CLASSIFIED Status: Acute Current Visit: Yes (2) Severe systolic congestive heart failure SNOMED Code(s): 24510990, 992227320 ICD Code: I50.20 - UNSPECIFIED SYSTOLIC (CONGESTIVE) HEART FAILURE Status: Acute Current Visit: Yes (3) Acute cholecystitis due to biliary calculus SNOMED Code(s): 25253396755912 ICD Code: K80.00 - CALCULUS OF GALLBLADDER W ACUTE CHOLECYST W/O OBSTRUCTION Status: Acute Current Visit: Yes (4) CKD (chronic kidney disease), stage III SNOMED Code(s): 394468981 ICD Code: N18.30 - CHRONIC KIDNEY DISEASE, STAGE 3 UNSPECIFIED Status: Chronic Current Visit: Yes Qualifiers: Chronic kidney disease stage 3 subtype: stage 3b (GFR 30-44) Qualified Code(s): N18.32 - Chronic kidney disease, stage 3b (5) High anion gap metabolic acidosis SNOMED Code(s): 67510959 ICD Code: E87.2 - ACIDOSIS Status: Acute Current Visit: Yes - Patient Summary/Data Consults: Consultations 08/27/20 19:55 PT Evaluation and Treatment [CONS] Routine Please Evaluate and Treat. PT Reason for Consult: Weakness This query below is only for informational purposes and is not editable. Hospital Course: Radha presented to the emergency room with about 2-1/2 weeks of progressive dyspnea as well as postprandial pain across the upper portion of her abdomen. She was seen in the emergency room on 08/22 and evaluated for her shortness of breath. Influenza, RSV and Covid testing were all negative at that time. She was given an albuterol inhaler as well as a tapering dose of steroids and discharged home. She was seen by her primary care provider couple days later and was started a low-dose of furosemide with concern that she may have congestive heart failure. Work-up in the emergency on 08/27 room revealed mild leukocytosis and mild thrombocytopenia. She had a hepatocellular injury pattern with an AST and ALT of 2500 and 2,300 respectively. Bilirubin was 3.7. Her BNP was 18,900. Her D-dimer was 8400 and recently had been 1700. Her creatinine was 1.8 with a GFR less than 30. There was concern for cholecystitis and an ultrasound was obtained and did show evidence for acute cholecystitis with a thickened gallbladder wall as well as pericholecystic fluid and a positive sonographic Lezama sign. Chest x-ray did not show significant changes. There was concern for pulmonary embolism with her recent dyspnea and elevated D-dimer. Troponin was very mildly elevated at 0.07. Lower extremity venous Dopplers were obtained and were negative. Because of her low GFR we were not able to complete a CT scan but a VQ scan was planned when available in about 36 hours. She was empirically started on enoxaparin with the concern for potential pulmonary embolism. The patient was admitted to the hospital and started on ampicillin/sulbactam for management of the presumed acute cholecystitis. Examination and urinalysis suggested significant intravascular volume depletion despite the very elevated BNP so she was given some gentle IV fluids during the first portion of the hospital stay. By the morning after admission she was feeling a little bit better with less abdominal pain and nausea. She was still not able to eat very much without symptoms. Her AST and ALT had improved and her bilirubin had improved as well. Her vital signs remained stable and she was not having any fevers. Her white blood cell count was slightly better as well. Serial troponin levels remained stable at around 0.07. Overnight the second night there were no acute issues and the patient remained stable. On Saturday morning, the morning that eventually was the day of discharge/transfer the patient had an MRCP for further evaluation of her abnormal ultrasound and abnormal hepatic panel numbers. This showed similar findings to the ultrasound with gallbladder wall thickening, pericholecystic fluid and continued to raise concern for acute cholecystitis. She had a VQ scan which showed low probability for pulmonary embolism. Laboratory studies showed further improvement with additional reduction in her white blood cell count down to around 11,000. AST and ALT had improved further to about 300 and 1200 respectively. Her lactic acid level was checked this morning and was elevated at 3.2. She had a mild elevation of her anion gap and a mild metabolic acidosis. Later in the day we did obtain an echocardiogram which unfortunately showed a severely reduced ejection fraction at less than 20%. She also had a large intracardiac thrombus in the left ventricle with a 1.3 cm diameter. I discussed all these findings with the family and raised concerns that she may benefit from a higher level of care. We had a family conference with patient and several children present. The patient and family were agreeable to transfer for cardiology evaluation and additional management. She may need a [place] for further characterization of the intracardiac thrombus. If she is too sick to have surgery for her cholecystitis she may need percutaneous drainage. The abnormal hepatic panel tests and abnormal imaging of the gallbladder could also be related to her severely reduced ejection fraction and hepatic congestion. She would benefit from further evaluation of her severely reduced ejection fraction and cardiology consultation. She is stable for transfer and the benefits far outweigh the r isks. I did talk to [facility] in [place] and Dr. Wheat was agreeable to receive her care in transfer. She will be transferred by ambulance to [facility] in [place] for additional management and likely subspecialty evaluation. She has been on therapeutic dose of enoxaparin during the hospital stay with her most recent dose being 90 mg subcutaneous at 9 AM on the day of discharge. There are no pending lab tests or cultures. - Patient Instructions Diet: NPO Activity: Bedrest Other/Special Instructions: Transfer to [facility]. Dx: Intracardiac thrombus, severe systolic CHF EF<20%, acute cholecystitis with cholelithiasis. Dr Wheta accepting - Discharge Plan *PRESCRIPTION DRUG MONITORING PROGRAM REVIEWED*: Not Applicable *COPY OF PRESCRIPTION DRUG MONITORING REPORT IN PATIENT [place]: Not Applicable Home Medications: Home Meds Aspirin 81 mg PO DAILY 08/28/16 [History] Calcium Carbonate/Vitamin D3 [Oyster Shell 500-Vit D3 200 Tb] 200 - 500 mg PO DAILY 08/28/16 [History] Citalopram [Citalopram HBr] 40 mg PO BEDTIME 08/28/16 [History] Lisinopril [Prinivil] 20 mg PO BEDTIME 08/28/16 [History] Metoprolol Succinate [Toprol XL] 25 mg PO DAILY 08/28/16 [History] allopurinoL [Zyloprim] 300 mg PO DAILY 08/28/16 [History] Latanoprost/Pf [Latanoprost 0.005% Eye Drop] 1 drop TOP BEDTIME 08/22/20 [History] Furosemide [Lasix] 20 mg PO DAILY 08/27/20 [History] predniSONE [Prednisone] 30 mg PO ASDIRECTED 08/27/20 [History] Forms: ED Department Discharge Referrals: Donavan Small, [employer] [Primary Care Provider] - - Discharge Summary/Plan Comment DC Time >30 min.: Yes (75-transfer to acute hospital ) - Patient Data Vitals - Most Recent: Last Vital Signs Temp 36.3 C 08/29/20 10:38 Pulse 84 08/29/20 10:38 Resp 16 08/29/20 10:38 BP 132/82 08/29/20 10:38 Pulse Ox 98 08/29/20 10:38 Weight - Most Recent: 97.522 kg I&O - Last 24 hours: Intake & Output 08/29/20 08/29/20 08/29/20 06:59 14:59 22:59 Intake Total 792 719 Output Total 175 300 Balance 617 419 Lab Results - Last 24 hrs: Laboratory Results - last 24 hr 08/29/20 08/29/20 08/29/20 Range/Units 05:55 05:55 08:09 WBC 11.7 H (4.5-11.0) K/uL RBC 5.43 (3.30-5.50) M/uL Hgb 16.1 H (12.0-15.0) g/dL Hct 50.6 H (36.0-48.0) % MCV 93 (80-98) fL MCH 30 (27-31) pg MCHC 32 (32-36) % Plt Count 121 L (150-400) K/uL Neut % (Auto) 88 H (36-66) % Lymph % (Auto) 4 L (24-44) % Robertson % (Auto) 8 H (2-6) % Eos % (Auto) 0 L (2-4) % Baso % (Auto) 0 (0-1) % Sodium 140 (140-148) mmol/L Potassium 4.7 (3.6-5.2) mmol/L Chloride 106 (100-108) mmol/L Carbon Dioxide 19 L (21-32) mmol/L Anion Gap 19.7 H (5.0-14.0) mmol/L BUN 44 H (7-18) mg/dL Creatinine 1.5 H (0.6-1.0) mg/dL Est Cr Clr Drug Dosing 20.41 mL/min Estimated GFR (MDRD) 33 L (>60) Glucose 164 H (74-106) mg/dL Lactic Acid 3.2 H (0.4-2.0) mmol/L Calcium 7.4 L (8.5-10.1) mg/dL Total Bilirubin 2.6 H (0.2-1.0) mg/dL AST 320 H D (15-37) U/L ALT 1219 H (12-78) U/L Alkaline Phosphatase 173 H (46-116) U/L Total Protein 5.1 L (6.4-8.2) g/dL Albumin 2.9 L (3.4-5.0) g/dL Globulin 2.2 L (2.3-3.5) g/dL Albumin/Globulin Ratio 1.3 (1.2-2.2) Med Orders - Current: Current Medications Acetaminophen (Acetaminophen 325 Mg Tab) 650 mg PO Q4H PRN PRN Reason: Pain (Mild 1-3)/fever Last Admin: 08/28/20 22:23 Dose: 650 mg Documented by: Albuterol (Albuterol 0.083% 2.5 Mg/3 Ml Neb Soln) 2.5 mg NEB Q4H PRN PRN Reason: Shortness Of Breath/wheezing Aspirin (Aspirin 81 Mg Tab.Ec) 81 mg PO DAILY [facility] Last Admin: 08/29/20 09:41 Dose: 81 mg Documented by: Citalopram Hydrobromide (Citalopram 20 Mg Tab) 40 mg PO BEDTIME [facility] Last Admin: 08/28/20 20:40 Dose: 40 mg Documented by: Ampicillin Sodium/Sulbactam (Sodium 1.5 gm/ Sodium Chloride) 50 mls @ 100 mls/hr IV Q12H [facility] Last Admin: 08/29/20 09:40 Dose: 100 mls/hr Documented by: Potassium Chloride/Dextrose/Sod Cl (D5 Ns With 20 Meq Kcl) 1,000 mls @ 50 mls/hr IV ASDIRECTED [facility] Last Admin: 08/29/20 11:28 Dose: 50 mls/hr Documented by: Latanoprost (Latanoprost 0.005% Ophth Soln 2.5 Ml Bottle) 0 ml EYEBOTH BEDTIME [facility] Last Admin: 08/28/20 20:40 Dose: 1 drop Documented by: Metoprolol Succinate (Metoprolol Succinate 25 Mg Tab.Er) 25 mg PO DAILY [facility] Last Admin: 08/29/20 09:40 Dose: 25 mg Documented by: Ondansetron HCl (Ondansetron 4 Mg/2 Ml Sdv) 4 mg IV Q4H PRN PRN Reason: Nausea/Vomiting Polyethylene Glycol (Polyethylene Glycol 3350 Powder 17 Gm Packet) 17 gm PO DAILY PRN PRN Reason: Constipation Prednisone (Prednisone 10 Mg Tab) 10 mg PO BIDMEALS [facility] Stop: 08/30/20 17:01 Last Admin: 08/29/20 09:40 Dose: 10 mg Documented by: Prednisone (Prednisone 10 Mg Tab) 10 mg PO DAILY [facility] Sodium Chloride (Sodium Chloride 0.9% 10 Ml Syringe) 10 ml FLUSH ASDIRECTED PRN PRN Reason: Keep Vein Open Discontinued Medications Enoxaparin Sodium (Enoxaparin 100 Mg/1 Ml Syringe) 90 mg SUBCUT Q24H [facility] Last Admin: 08/28/20 20:40 Dose: 90 mg Documented by: Sodium Chloride (Normal Saline) 1,000 mls @ 1,000 mls/hr IV .BOLUS ONE Stop: 08/27/20 18:46 Last Admin: 08/27/20 17:52 Dose: 1,000 mls/hr Documented by: Sodium Chloride (Normal Saline) 1,000 mls @ 125 mls/hr IV ASDIRECTED [facility] Last Admin: 08/28/20 04:29 Dose: 125 mls/hr Documented by: Sodium Chloride (Normal Saline) 1,000 mls @ 75 mls/hr IV ASDIRECTED [facility] Sodium Chloride (Normal Saline) 1,000 mls @ 500 mls/hr IV ASDIRECTED [facility] Stop: 08/28/20 18:56 Last Admin: 08/28/20 17:12 Dose: 500 mls/hr Documented by: Sodium Chloride (Normal Saline) 1,000 mls @ 250 mls/hr IV ONETIME ONE Stop: 08/29/20 00:02 Last Admin: 08/28/20 20:16 Dose: 250 mls/hr Documented by: Sodium Chloride (Normal Saline) 1,000 mls @ 125 mls/hr IV ASDIRECTED [facility] Last Admin: 08/29/20 04:18 Dose: 125 mls/hr Documented by: Lisinopril (Lisinopril 20 Mg Tab) 20 mg PO BEDTIME [facility] Last Admin: 08/28/20 20:41 Dose: 20 mg Documented by: Lisinopril (Lisinopril 10 Mg Tab) Confirm Administered Dose 20 mg .ROUTE .STK- MED ONE Stop: 08/27/20 20:36 Last Admin: 08/27/20 20:39 Dose: Not Given Documented by: Sodium Chloride (Sodium Chloride 0.9% 10 Ml Syringe) 10 ml FLUSH ASDIRECTED PRN PRN Reason: Keep Vein Open Last Admin: 08/27/20 17:08 Dose: 10 ml Documented by: *Q Meaningful Use (DIS) - VTE *Q VTE Pharmacological Contraindications *Q: High INR Value
[2020-08-29 16:35] VITALS: BP 126/81; PULSE 85
[2020-08-31] MEDS ORDERED: predniSONE 10 MG Tab PO SCH (09:00)
== END 2020-08-29 17:53 | DRG 444 ==
LOC: JP.ED 15:51 → JP.MS 18:45
PROVIDERS: ADMIT Hospitalist; ATTEND Internal Medicine
DX: K80.00 Calculus of gallbladder with acute cholecystitis without obstruction (principal); I50.21 Acute systolic (congestive) heart failure; R79.89 Other specified abnormal findings of blood chemistry; I26.99 Other pulmonary embolism without acute cor pulmonale; J30.9 Allergic rhinitis, unspecified; N18.4 Chronic kidney disease, stage 4 (severe); I13.0 Hypertensive heart and chronic kidney disease with heart failure and stage 1 through stage 4 chronic kidney disease, or unspecified chronic kidney disease; E87.2 Acidosis; Z68.41 Body mass index [BMI] 40.0-44.9, adult; E86.0 Dehydration; R77.8 Other specified abnormalities of plasma proteins; H54.7 Unspecified visual loss; E78.00 Pure hypercholesterolemia, unspecified; I51.3 Intracardiac thrombosis, not elsewhere classified; I25.10 Atherosclerotic heart disease of native coronary artery without angina pectoris; M81.0 Age-related osteoporosis without current pathological fracture; D69.6 Thrombocytopenia, unspecified; K59.09 Other constipation; K52.9 Noninfective gastroenteritis and colitis, unspecified; K21.9 Gastro-esophageal reflux disease without esophagitis; M54.9 Dorsalgia, unspecified; M19.90 Unspecified osteoarthritis, unspecified site; G89.29 Other chronic pain; M10.9 Gout, unspecified; M54.2 Cervicalgia; E66.9 Obesity, unspecified; F03.90 Unspecified dementia, unspecified severity, without behavioral disturbance, psychotic disturbance, mood disturbance, and anxiety; Z96.649 Presence of unspecified artificial hip joint; Z96.659 Presence of unspecified artificial knee joint; Z90.89 Acquired absence of other organs; Z90.49 Acquired absence of other specified parts of digestive tract; Z79.82 Long term (current) use of aspirin; Z79.52 Long term (current) use of systemic steroids; Z79.899 Other long term (current) drug therapy; Z88.6 Allergy status to analgesic agent; Z95.5 Presence of coronary angioplasty implant and graft; Z86.718 Personal history of other venous thrombosis and embolism; Z88.8 Allergy status to other drugs, medicaments and biological substances; Z88.1 Allergy status to other antibiotic agents; Z88.2 Allergy status to sulfonamides; Z87.01 Personal history of pneumonia (recurrent); Z87.442 Personal history of urinary calculi; Z98.890 Other specified postprocedural states
CPT/HCPCS: 36415; 36600; 71045; 71045-26; 74181; 74181-26; 76705; 78582; 78582-26; 80048; 80053; 80076; 80307; 81001; 82140; 82803; 83605; 83735; 83880; 84484; 85025; 85027; 85379; 93306; 93970; 97162-GP; 97530-GP; 99222; 99232; 99239; 99284; 99285-25; A9270-GY; A9539; A9540; J0295; J1650; J3480; J7030; J7512